=== PATIENT | male | born 1955 | race Caucasian/White ===

== ENCOUNTER 2020-01-11 18:20 | Emergency (ER) | payer MEDICARE, MEDICAID, SELFPAY ==
[2020-01-11 19:14] VITALS: BP 88/47; PULSE 87; RESP 14; TEMP 36.1; O2SAT 92
[2020-01-11] MEDS: SODIUM CHLORIDE 0.9% IV 1,000 ML 999 ML IV CONT ×2 (19:17→21:09)
[2020-01-11 19:21] LABS: Basophils Absolute Auto 0.05 K/mm3 (0.00-0.10); Basophils Percent Auto 0.9 % (0.0-1.0); Eosinophils Absolute Auto 0.24 K/mm3 (0.02-0.50); Eosinophils Percent Auto 4.3 % (1.0-6.0); Hemoglobin 11.3 g/dL (12.4-15.3); Immature Granulocyte Absolute 0.01 K/mm3 (0.00-0.00); Immature Granulocyte Percent A 0.2 % (0.0-0.0); Lymphocytes Absolute Auto 1.82 K/mm3 (1.10-4.50); Lymphocytes Percent Auto 32.3 % (18.0-42.0); Mean Corpuscular HGB Conc 34.2 g/dL (32.0-36.0); Mean Corpuscular Hemoglobin 31.3 pg (27.0-31.0); Mean Corpuscular Volume 91.4 fL (78.0-102.0); Mean Platelet Volume 10.1 fl (8.7-11.0); Monocytes Absolute Auto 0.34 K/mm3 (0.10-0.90); Neutrophils Absolute Auto 3.2 K/mm3 (1.7-7.2); Neutrophils Percent Auto 56.3 % (50.0-70.0); Platelet Count Result 208 K/mm3 (150-420); Red Blood Count 3.61 M/mm3 (4.70-6.10); Red Cell Distribution Width 12.5 % (11.6-14.4); White Blood Count 5.6 K/mm3 (4.8-10.8)
--- NOTE | 2020-01-11 19:30 | PC.NURSE ---
VERBAL ORDERS ENTERED UNDER PCP DR. TUCKER. ERP AWARE. ATTEMPTED TO EDIT ORDER UNDER DR. MCKINNEY, UNSUCCESSFUL.
[2020-01-11 19:50] LABS: Alanine Aminotransferase 22 U/L (16-63); Albumin Level 3.9 g/dL (3.4-5.0); Alkaline Phosphatase 101 U/L (46-116); Anion Gap 16.1 mmol/L (7-16); Aspartate Amino Transferase 20 U/L (15-37); Bilirubin,Total 0.3 mg/dL (0.00-1.00); Blood Urea Nitrogen 14 mg/dL (7-18); Calcium 8.5 mg/dL (8.5-10.1); Carbon Dioxide 23 mmol/L (21-32); Chloride 102 mmol/L (98-108); Estimated Glomerular Filt Rate > 60; Ethanol 77 mg/dL (0-6); Glucose 90 mg/dL (70-99); Osmolality Calculated 284 mOsm/kg (285-295); Potassium 4.1 mmol/L (3.5-5.1); Salicylate 1.1 mg/dL (2.8-20.0); Sodium 137 mmol/L (136-145); Total Protein 7.2 g/dL (6.4-8.2)
[2020-01-11 19:53] LABS: Acetaminophen 0 ug/mL (10-30); Troponin I < 0.02 ng/mL (0.00-0.056)
--- NOTE | 2020-01-11 21:59 | ED.AMS ---
HPI - Altered Mental Status General Chief Complaint: Altered Mental Status Stated Complaint: amb History of Present Illness HPI narrative: Rj Is a 64-year-old man with a past medical history of depression, etoh use, hypertension, insomnia and prolonged QTC was found lying down the front of the pharmacy today. He reports he was drinking some beer this morning and then when walking. He became woozy and went to lie down. He never lost consciousness or fell. He felt woozy and weak so the ambulance was called. Upon arrival he was found to be in the 80s over 50s for blood pressure. He was brought to the emergency department. he denies chest pain, shortness of breath, nausea, vomiting, but does admit being lightheaded. He denies ever losing consciousness. Review of Systems Constitutional: Constitutional: Reports as per HPI Eyes: Eyes: Reports no additional eye complaints ENT: Reports system reviewed and no additional complaints, except as documented Cardiovascular: Cardiovascular: Reports as per HPI Respiratory: Respiratory: Reports as per HPI Gastrointestinal: Gastrointestinal: Reports as per HPI Genitourinary: Genitourinary: Reports no additional male genitourinary complaints Musculoskeletal: Musculoskeletal: Reports no additional musculoskeletal complaints Integumentary/Breasts: Skin/Breast: Reports system reviewed and no additional complaints, except as docu Neurologic: Reports as per HPI Psychiatric: Psychiatric: Reports no additional psychiatric complaints Endocrine: Endocrine: Reports no additional endocrine complaints Hematologic/Lymphatic: Hematologic/Lymphatic: Reports no additional hematologic/lymphatic complaints Allergic/Immunologic: Allergic/Immunologic: Reports no additional allergic/immunologic complaints Exam Const: General: cooperative, comfortable, no acute distress and well developed HENMT: Other: normocephalic, atraumatic Eyes: General: appearance normal, both eyes and all related structures Neck: Neck: normal visual inspection Chest: Chest palpation & inspection: normal inspection of the chest Resp: Effort & Inspection: normal respiratory effort and able to speak in complete sentences Auscultation: clear to auscultation bilaterally, abnormal I/E ratio and no wheezes Cardio: Jugular venous distension: JVD present Other: Regular rate and rhythm without murmur, no lower extremity edema, peripheral pulses intact GI: Other: normal to inspection, bowel sounds present, no tenderness palpation Skin: General skin exam: normal color and no rashes or lesions noted Extrem: Other: Alert oriented x3, no focal deficits, normal speech and normal cognition. No apparent amnesia of into Psych: Appearance: grossly normal and well kempt Course Course Emergency Course: Rj was seen and evaluated. As he had lightheadedness with markedly low blood pressures in the 80s over 50 IV was placed and he was given 1 L of fluids. His blood pressure came up to the 1 100s over 60s. Another L was given and came up to 124/73. After this he reported that he felt better and the lightheadedness was improved. He denied any other symptoms. He has to go home. Before being discharged he was able to walk laps around the ER without difficulty and was alert oriented x3. We discussed stopping alcohol, Ambien, lisinopril and amlodipine and to follow-up with his PCP. he was then discharged. Vital Signs Vital signs: Vital Signs Temperature 36.1 C L 01/11/20 19:14 Pulse Rate 87 01/11/20 19:14 Respiratory Rate 14 01/11/20 19:14 Blood Pressure 88/47 L 01/11/20 19:14 Pulse Oximetry 92 01/11/20 19:14 Temperature 36.1 C L 01/11/20 19:14 Pulse Rate 87 01/11/20 19:14 Respiratory Rate 14 01/11/20 19:14 Blood Pressure 88/47 L 01/11/20 19:14 Pulse Oximetry 92 01/11/20 19:14 MDM - Altered Mental Status MDM Narrative Medical decision making narrative: lightheadedness secondary to dehydration
[2020-01-11 22:07] VITALS: BP 124/73
== END 2020-01-11 22:08 | disposition home or self-care (01) ==
PROVIDERS: Emergency Provider Family Medicine; PCP Internal Medicine
DX: E86.0 Dehydration (principal); I10 Essential (primary) hypertension; Z72.89 Other problems related to lifestyle
CPT/HCPCS: 36415; 80053; 80307; 84484; 85025; 96360; 96361; 99283; 99284; J7030

== ENCOUNTER 2020-03-05 06:59 | Outpatient (CLI) | payer MEDICARE, MEDICAID, SELFPAY ==
[2020-03-05 07:19] LABS: Basophils Absolute Auto 0.05 K/mm3 (0.00-0.10); Basophils Percent Auto 0.6 % (0.0-1.0); Eosinophils Absolute Auto 0.21 K/mm3 (0.02-0.50); Eosinophils Percent Auto 2.5 % (1.0-6.0); Hematocrit 39.6 % (37.0-46.0); Hemoglobin 13.3 g/dL (12.4-15.3); Immature Granulocyte Absolute 0.02 K/mm3 (0.00-0.00); Immature Granulocyte Percent A 0.2 % (0.0-0.0); Lymphocytes Absolute Auto 1.63 K/mm3 (1.10-4.50); Lymphocytes Percent Auto 19.5 % (18.0-42.0); Mean Corpuscular HGB Conc 33.6 g/dL (32.0-36.0); Mean Corpuscular Hemoglobin 31.1 pg (27.0-31.0); Mean Corpuscular Volume 92.5 fL (78.0-102.0); Mean Platelet Volume 10.4 fl (8.7-11.0); Monocytes Absolute Auto 0.59 K/mm3 (0.10-0.90); Monocytes Percent Auto 7.1 % (2.0-11.0); Neutrophils Absolute Auto 5.9 K/mm3 (1.7-7.2); Neutrophils Percent Auto 70.1 % (50.0-70.0); Platelet Count Result 198 K/mm3 (150-420); Red Blood Count 4.28 M/mm3 (4.70-6.10); Red Cell Distribution Width 12.4 % (11.6-14.4); White Blood Count 8.4 K/mm3 (4.8-10.8)
--- NOTE | 2020-03-05 07:30 | ECG_ITS ---
Measurements Intervals [place] Rate: 85 P: 60 [place]: 160 QRS: 69 QRSD: 114 T: 53 QT: 380 QTc: 454 Interpretive Statements SINUS RHYTHM INCOMPLETE RIGHT BUNDLE BRANCH BLOCK BORDERLINE ECG Electronically Signed On 03-05-2020 7:51:59 CDT by Jamie Jimenes D.O.
[2020-03-05 08:48] LABS: Hemoglobin A1C 5.4 % (<5.7)
[2020-03-05 09:21] LABS: Alanine Aminotransferase 23 U/L (16-63); Alkaline Phosphatase 115 U/L (46-116); Anion Gap 14.5 mmol/L (7-16); Aspartate Amino Transferase 19 U/L (15-37); Bilirubin,Total 0.6 mg/dL (0.00-1.00); Blood Urea Nitrogen 11 mg/dL (7-18); Calcium 9.1 mg/dL (8.5-10.1); Carbon Dioxide 28 mmol/L (21-32); Chloride 102 mmol/L (98-108); Cholesterol 184 mg/dL (0-200); Estimated Glomerular Filt Rate > 60; Glucose 112 mg/dL (70-99); HDL Direct 60 mg/dL (40-60); LDL Cholesterol Calculated 86 mg/dL (<130); Osmolality Calculated 290 mOsm/kg (285-295); Potassium 4.5 mmol/L (3.5-5.1); Sodium 140 mmol/L (136-145); Total Protein 6.7 g/dL (6.4-8.2); Triglycerides 190 mg/dL (0-150)
== END 2020-03-05 07:00 | disposition home or self-care (01) ==
PROVIDERS: PCP Internal Medicine
DX: Z79.899 Other long term (current) drug therapy (principal)
CPT/HCPCS: 36415; 80053; 80061; 83036; 85025; 93005

== ENCOUNTER 2020-08-04 09:20 | Outpatient (CLI) | payer MEDICARE, SELFPAY ==
[2020-08-04 09:48] LABS: Appearance Urine Clear (Clear); Bilirubin Urine Negative (Negative); Color Urine Yellow (Yellow); Glucose Urine UA Negative (Negative); Ketones Urine Negative (Negative); Leukocyte Esterase Ur Negative (Negative); Nitrate Urine Negative (Negative); Protein Urine Negative (Negative); Specific Grav Ur <= 1.005 (1.010-1.020); Urobilinogen Urine 0.2 mg/dL (0.2-1.0)
[2020-08-04 10:00] LABS: Hemoglobin A1C 4.9 % (<5.7)
[2020-08-04 10:18] LABS: Add Urine Microscopic? YES; Blood Urine Trace-Intact (Negative)
[2020-08-04 10:19] LABS: Bacteria Urine None seen /hpf; RBC Urine 0-2 /hpf (0-2); Squamous Epithelial Cell Urine None seen /hpf (Few); WBC Urine 0-3 /hpf (0-3)
[2020-08-04 10:49] LABS: Alanine Aminotransferase 31 U/L (16-63); Anion Gap 12 mmol/L (8-16); Aspartate Amino Transferase 27 U/L (15-37); Bilirubin,Total 0.5 mg/dL (0.00-1.00); Blood Urea Nitrogen 11 mg/dL (7-18); Calcium 8.8 mg/dL (8.5-10.1); Carbon Dioxide 24 mmol/L (21-32); Chloride 104 mmol/L (98-108); Estimated Glomerular Filt Rate > 60; Glucose 104 mg/dL (70-99); Osmolality Calculated 289 mOsm/kg (285-295); Potassium 4.1 mmol/L (3.5-5.1); Sodium 140 mmol/L (136-145)
[2020-08-04 10:50] LABS: Albumin Level 4.2 g/dL (3.4-5.0); Alkaline Phosphatase 110 U/L (46-116); Cholesterol 205 mg/dL (0-200); HDL Direct 69 mg/dL (40-60); LDL Cholesterol Calculated 75 mg/dL (<130); Prostate Specific Antigen 1.1 ng/mL (< OR = 4.0); Triglycerides 306 mg/dL (0-150)
== END 2020-08-04 09:21 | disposition home or self-care (01) ==
LOC: CHSLAB 09:22
PROVIDERS: PCP Internal Medicine; Visit Provider Internal Medicine
DX: E78.5 Hyperlipidemia, unspecified (principal); R73.9 Hyperglycemia, unspecified; Z12.5 Encounter for screening for malignant neoplasm of prostate; Z00.00 Encounter for general adult medical examination without abnormal findings
CPT/HCPCS: 36415; 80053; 80061; 81001; 83036; 84153; G0103

== ENCOUNTER 2021-03-09 09:25 | Outpatient (CLI) | payer MEDICARE, OTHER, SELFPAY | END 2021-03-09 09:26 | disposition home or self-care (01) | LOC: CHSCOVIDVC 09:26 | PROVIDERS: PCP Internal Medicine | DX: Z23 Encounter for immunization (principal) | CPT/HCPCS: 0011A; 91301 ==

== ENCOUNTER 2021-03-20 10:30 | Outpatient (CLI) | payer MEDICARE, SELFPAY ==
[2021-03-20 11:22] LABS: Alanine Aminotransferase 82 U/L (16-63); Albumin Level 3.6 g/dL (3.4-5.0); Alkaline Phosphatase 154 U/L (46-116); Anion Gap 9 mmol/L (8-16); Aspartate Amino Transferase 92 U/L (15-37); Bilirubin,Total 0.4 mg/dL (0.00-1.00); Blood Urea Nitrogen 8 mg/dL (7-18); Calcium 8.5 mg/dL (8.5-10.1); Carbon Dioxide 27 mmol/L (21-32); Chloride 101 mmol/L (98-108); Cholesterol 162 mg/dL (0-200); Estimated Glomerular Filt Rate > 60; Glucose 95 mg/dL (70-99); HDL Direct 62 mg/dL (40-60); LDL Cholesterol Calculated 43 mg/dL (<130); Osmolality Calculated 282 mOsm/kg (285-295); Potassium 4.2 mmol/L (3.5-5.1); Sodium 137 mmol/L (136-145); Total Protein 6.6 g/dL (6.4-8.2); Triglycerides 285 mg/dL (0-150)
[2021-03-25 11:46] LABS: Hepatitis A Antibody IgM Nonreactive; Hepatitis B Core Antibody Nonreactive (Nonreactive); Hepatitis B Surface Antigen Nonreactive (Nonreactive); Hepatitis C Signal to Cutoff 0.01 ratio (<1.00); Hepatitis C Virus Antibody Nonreactive (Nonreactive)
== END 2021-03-20 10:31 | disposition home or self-care (01) ==
PROVIDERS: PCP Internal Medicine; Visit Provider Internal Medicine
DX: E78.5 Hyperlipidemia, unspecified (principal); R94.5 Abnormal results of liver function studies
CPT/HCPCS: 36415; 80053; 80061; 80074

== ENCOUNTER 2021-03-22 09:11 | Outpatient (CLI) | payer MEDICARE, MEDICAID, SELFPAY ==
--- NOTE | ~2021-03-22 | US_ITS ---
US right upper quadrant DATE: 03/22/2021 09:56 INDICATION: Elevated liver enzymes TECHNIQUE: Real-time imaging of liver, pancreas, gallbladder COMPARISON: None FINDINGS: The pancreatic tail is not demonstrated. The pancreas is otherwise unremarkable. No hepatic space-occupying mass lesion. No gallstones, gallbladder wall thickening or pericholecystic fluid col lection. Negative sonographic Hinojosa's sign. Common bile duct measures 3.8 mm, normal. IMPRESSION: No significant abnormality Reviewed, dictated and finalized at [facility]. Reviewed, dictated and finalized at [facility]. IMPRESSION: No significant abnormality
== END 2021-03-22 09:12 | disposition home or self-care (01) ==
LOC: CHSIMG 09:11
PROVIDERS: PCP Internal Medicine; Visit Provider Internal Medicine
DX: R94.5 Abnormal results of liver function studies (principal)
CPT/HCPCS: 76705

== ENCOUNTER 2021-04-06 09:18 | Outpatient (CLI) | payer MEDICARE, OTHER, SELFPAY | END 2021-04-06 09:19 | disposition home or self-care (01) | LOC: CHSCOVIDVC 09:18 | PROVIDERS: PCP Internal Medicine | DX: Z23 Encounter for immunization (principal) | CPT/HCPCS: 0012A; 91301 ==

== ENCOUNTER 2021-06-18 19:24 | Emergency (ER) | payer MEDICARE, MEDICAID, SELFPAY ==
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
[2021-06-18 19:36] VITALS: BP 120/69; PULSE 75; RESP 20; TEMP 37; O2SAT 97
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
[2021-06-18 21:44] LABS: Base Excess ABG -3.3 mmol/L (0-2); HCO3 ABG 20.4 mmol/L (23-29); Oxygen Content ABG 17.2 %vol (16.0-22.0); Oxyhemoglobin 92.3 % (94-100); Total Hemoglobin 13.2 g/dL (12.0-18.0); pH ABG 7.41 (7.35-7.45)
[2021-06-18 21:47] LABS: Device ROOM AIR; Modified Allen's Test Pass; Site Drawn RIGHT RADIAL
[2021-06-18 21:48] LABS: Basophils Absolute Auto 0.06 K/mm3 (0.00-0.10); Basophils Percent Auto 0.8 % (0.0-1.0); Eosinophils Absolute Auto 0.09 K/mm3 (0.02-0.50); Eosinophils Percent Auto 1.2 % (1.0-6.0); Hematocrit 39.2 % (37.0-46.0); Immature Granulocyte Absolute 0.02 K/mm3 (0.00-0.00); Immature Granulocyte Percent A 0.3 % (0.0-0.0); Lymphocytes Absolute Auto 1.03 K/mm3 (1.10-4.50); Lymphocytes Percent Auto 14.1 % (18.0-42.0); Mean Corpuscular HGB Conc 33.2 g/dL (32.0-36.0); Mean Corpuscular Hemoglobin 32.3 pg (27.0-31.0); Mean Corpuscular Volume 97.5 fL (78.0-102.0); Mean Platelet Volume 10.1 fl (8.7-11.0); Monocytes Absolute Auto 0.44 K/mm3 (0.10-0.90); Neutrophils Absolute Auto 5.7 K/mm3 (1.7-7.2); Neutrophils Percent Auto 77.6 % (50.0-70.0); Platelet Count Result 168 K/mm3 (150-420); Red Blood Count 4.02 M/mm3 (4.70-6.10); Red Cell Distribution Width 12.6 % (11.6-14.4); White Blood Count 7.3 K/mm3 (4.8-10.8)
[2021-06-18] MEDS: ALBUTEROL SULFATE (*SP) INHALER 2 PUFF INHALATION (22:02)
[2021-06-18 22:03] LABS: Alanine Aminotransferase 92 U/L (16-63); Albumin Level 3.6 g/dL (3.4-5.0); Alkaline Phosphatase 131 U/L (46-116); Anion Gap 12 mmol/L (8-16); Aspartate Amino Transferase 90 U/L (15-37); Bilirubin,Total 0.3 mg/dL (0.00-1.00); Blood Urea Nitrogen 7 mg/dL (7-18); Calcium 8.6 mg/dL (8.5-10.1); Carbon Dioxide 23 mmol/L (21-32); Chloride 104 mmol/L (98-108); Estimated CRCL calculation 77 ml/min; Estimated Glomerular Filt Rate > 60; Glucose 83 mg/dL (70-99); Osmolality Calculated 285 mOsm/kg (285-295); Potassium 4.3 mmol/L (3.5-5.1); Sodium 139 mmol/L (136-145); Total Protein 6.6 g/dL (6.4-8.2)
[2021-06-18 22:50] VITALS: BP 140/74; PULSE 80; RESP 20; TEMP 36.2; O2SAT 99
== END 2021-06-18 22:56 | disposition home or self-care (01) ==
PROVIDERS: Emergency Provider Emergency Medicine; PCP Internal Medicine
DX: T59.811A Toxic effect of smoke, accidental (unintentional), initial encounter (principal); J44.9 Chronic obstructive pulmonary disease, unspecified; F17.200 Nicotine dependence, unspecified, uncomplicated
CPT/HCPCS: 36415; 36600; 71046; 80053; 82805; 85025; 99283; A9270

== ENCOUNTER 2021-07-05 07:15 | Outpatient (CLI) | payer MEDICARE, SELFPAY ==
[2021-07-05 07:39] LABS: Basophils Absolute Auto 0.08 K/mm3 (0.00-0.10); Basophils Percent Auto 1.1 % (0.0-1.0); Eosinophils Absolute Auto 0.23 K/mm3 (0.02-0.50); Eosinophils Percent Auto 3.3 % (1.0-6.0); Hematocrit 38.8 % (37.0-46.0); Immature Granulocyte Absolute 0.02 K/mm3 (0.00-0.00); Immature Granulocyte Percent A 0.3 % (0.0-0.0); Lymphocytes Absolute Auto 1.84 K/mm3 (1.10-4.50); Lymphocytes Percent Auto 26.2 % (18.0-42.0); Mean Corpuscular HGB Conc 33.5 g/dL (32.0-36.0); Mean Corpuscular Hemoglobin 32.2 pg (27.0-31.0); Mean Platelet Volume 10.3 fl (8.7-11.0); Monocytes Absolute Auto 0.45 K/mm3 (0.10-0.90); Monocytes Percent Auto 6.4 % (2.0-11.0); Neutrophils Absolute Auto 4.4 K/mm3 (1.7-7.2); Neutrophils Percent Auto 62.7 % (50.0-70.0); Platelet Count Result 199 K/mm3 (150-420); Red Blood Count 4.04 M/mm3 (4.70-6.10); Red Cell Distribution Width 12.1 % (11.6-14.4)
[2021-07-05 07:43] LABS: Add Urine Microscopic? NO; Appearance Urine Clear (Clear); Bilirubin Urine Negative (Negative); Blood Urine Negative (Negative); Color Urine Yellow (Yellow); Glucose Urine UA Negative (Negative); Ketones Urine Negative (Negative); Leukocyte Esterase Ur Negative (Negative); Nitrate Urine Negative (Negative); Protein Urine Negative (Negative); Specific Grav Ur >= 1.030 (1.010-1.020); Urobilinogen Urine 0.2 mg/dL (0.2-1.0)
[2021-07-05 08:26] LABS: Alanine Aminotransferase 111 U/L (16-63); Albumin Level 3.7 g/dL (3.4-5.0); Alkaline Phosphatase 126 U/L (46-116); Anion Gap 10 mmol/L (8-16); Aspartate Amino Transferase 91 U/L (15-37); Bilirubin,Total 0.6 mg/dL (0.00-1.00); Blood Urea Nitrogen 10 mg/dL (7-18); Calcium 8.7 mg/dL (8.5-10.1); Carbon Dioxide 25 mmol/L (21-32); Chloride 106 mmol/L (98-108); Cholesterol 204 mg/dL (0-200); Estimated Glomerular Filt Rate > 60; Free T3 2.87 pg/mL (2.18-3.98); Free T4 Free Thyroxine 0.77 ng/dL (0.76-1.46); Glucose 104 mg/dL (70-99); HDL Direct 65 mg/dL (40-60); LDL Cholesterol Calculated 107 mg/dL (<130); Osmolality Calculated 291 mOsm/kg (285-295); Potassium 4.1 mmol/L (3.5-5.1); Sodium 141 mmol/L (136-145); Total Protein 6.6 g/dL (6.4-8.2); Triglycerides 162 mg/dL (0-150)
[2021-07-05 08:46] LABS: Thyroid Stimulating Hormone 0.93 uIU/mL (0.36-3.74)
== END 2021-07-05 07:16 | disposition home or self-care (01) ==
LOC: CHSLAB 07:17
PROVIDERS: PCP Internal Medicine; Visit Provider Internal Medicine
DX: E78.5 Hyperlipidemia, unspecified (principal); R94.5 Abnormal results of liver function studies; R63.4 Abnormal weight loss
CPT/HCPCS: 36415; 80053; 80061; 81003; 84439; 84443; 84481; 85025

== ENCOUNTER 2021-08-19 08:10 | Outpatient (CLI) | payer MEDICARE, SELFPAY ==
[2021-08-19 09:44] LABS: Alanine Aminotransferase 47 U/L (16-63); Albumin Level 3.7 g/dL (3.4-5.0); Alkaline Phosphatase 118 U/L (46-116); Anion Gap 10 mmol/L (8-16); Aspartate Amino Transferase 43 U/L (15-37); Bilirubin,Total 0.5 mg/dL (0.00-1.00); Blood Urea Nitrogen 9 mg/dL (7-18); Calcium 8.7 mg/dL (8.5-10.1); Carbon Dioxide 26 mmol/L (21-32); Chloride 105 mmol/L (98-108); Cholesterol 194 mg/dL (0-200); Estimated Glomerular Filt Rate > 60; Glucose 108 mg/dL (70-99); HDL Direct 62 mg/dL (40-60); LDL Cholesterol Calculated 100 mg/dL (<130); Osmolality Calculated 291 mOsm/kg (285-295); Sodium 141 mmol/L (136-145); Total Protein 6.4 g/dL (6.4-8.2); Triglycerides 161 mg/dL (0-150)
== END 2021-08-19 08:11 | disposition home or self-care (01) ==
LOC: CHSLAB 08:13
PROVIDERS: PCP Internal Medicine; Visit Provider Internal Medicine
DX: E78.5 Hyperlipidemia, unspecified (principal); R94.5 Abnormal results of liver function studies
CPT/HCPCS: 36415; 80053; 80061

== ENCOUNTER 2021-09-28 15:12 | Emergency (ER) | payer MEDICARE, MEDICAID, SELFPAY ==
[2021-09-28 15:22] VITALS: BP 141/76; PULSE 109; RESP 16; TEMP 36.7
--- NOTE | 2021-09-28 15:25 | ED.GENADULT ---
HPI - General Adult General Chief complaint: Unspecified Stated complaint: hypertension, blood pressure rosas Time Seen by Provider: 09/28/21 15:26 Source: patient Mode of arrival: ambulatory Limitations: no limitations History of Present Illness HPI narrative: 65-year-old male smoker with history of hypertension, dyslipidemia, COPD, depression took his blood pressure at the local pharmacy and noted it to be high. His blood pressure at the pharmacy was noted to be 190 systolic. He got concerned and presented to the ER. The patient does not have any complaints. Blood pressure here was noted to be 141/76. Onset (ago): minute(s) ( high blood pressure was noted half an hour ago.) Associated symptoms: denies other symptoms Treatments prior to arrival: none Related Data Home Medications Medication Instructions Recorded Confirmed amlodipine 5 mg PO DAILY 06/18/21 06/18/21 pravastatin 80 mg PO DAILY 06/18/21 06/18/21 quetiapine 100 mg PO DAILY 06/18/21 06/18/21 zolpidem 10 mg PO DAILY 06/18/21 06/18/21 Allergies Allergy/AdvReac Type Severity Reaction Status Date / Time No Known Allergies Allergy Verified 06/18/21 19:35 Review of Systems Review of Systems: All systems reviewed & are unremarkable except as noted in HPI and below Constitutional: Constitutional: Reports no additional constitutional complaints Eyes: Eyes: Reports as per HPI ENT: Reports system reviewed and no additional complaints, except as documented Cardiovascular: Cardiovascular: Reports no additional cardiovascular complaints Respiratory: Respiratory: Reports other ( Has a history of chronic cough with mucoid sputum production.) Gastrointestinal: Gastrointestinal: Reports no additional gastrointestinal complaints Genitourinary: Genitourinary: Reports no additional male genitourinary complaints Musculoskeletal: Musculoskeletal: Reports no additional musculoskeletal complaints Integumentary/Breasts: Skin/Breast: Reports system reviewed and no additional complaints, except as docu Neurologic: Reports system reviewed and no additional complaints, except as documented Psychiatric: Psychiatric: Reports no additional psychiatric complaints Endocrine: Endocrine: Reports no additional endocrine complaints Hematologic/Lymphatic: Hematologic/Lymphatic: Reports no additional hematologic/lymphatic complaints Allergic/Immunologic: Allergic/Immunologic: Reports no additional allergic/immunologic complaints PMFSH Past Medical History Medical History COPD (chronic obstructive pulmonary disease) Depressed Dyslipidemia Hypertension Social History Social History Smoking status: Current every day smoker Exam Const: General: cooperative HENMT: Head: normal to inspection Ears: hearing grossly normal bilaterally General nose exam: Normal external nose present Face and sinus: normal facial exam Mouth: Yes Normal oral and palatal mucosa present Throat: posterior oropharynx normal Eyes: General: appearance normal, both eyes and all related structures Neck: Neck: normal visual inspection Chest: Chest palpation & inspection: normal inspection of the chest Resp: Effort & Inspection: normal respiratory effort Cardio: Jugular venous distension: no JVD Palpation: normal PMI Rate: regular rate Rhythm: regular rhythm Heart sounds: S1 normal heart sound present and S2 normal heart sound present GI: Inspection: normal to inspection : General: Yes bimanual renal exam normal bilaterally and Yes no CVA tenderness Back/Spine/Pelvis: Back: no CVA tenderness Skin: General skin exam: no rashes or lesions noted Neuro: General: oriented to person, oriented to place, oriented to time, patient oriented x3, Normal light touch and pain sensation, no meningeal signs, no focal motor deficits and CN's II-XI intact bilaterally Cranial nerv
--- NOTE | 2021-09-28 15:42 | PC.NURSE ---
Pt refused blood work.
== END 2021-09-28 15:47 | disposition home or self-care (01) ==
PROVIDERS: Emergency Provider Internal Medicine Critical Care Medicine; PCP Internal Medicine
DX: I10 Essential (primary) hypertension (principal); J44.9 Chronic obstructive pulmonary disease, unspecified; E78.5 Hyperlipidemia, unspecified; F17.200 Nicotine dependence, unspecified, uncomplicated
CPT/HCPCS: 99281; 99282

== ENCOUNTER 2021-12-30 07:36 | Outpatient (CLI) | payer MEDICARE, SELFPAY ==
[2021-12-30 09:23] LABS: Alanine Aminotransferase 40 U/L (16-63); Albumin Level 3.6 g/dL (3.4-5.0); Alkaline Phosphatase 104 U/L (46-116); Anion Gap 11 mmol/L (8-16); Aspartate Amino Transferase 36 U/L (15-37); Bilirubin,Total 0.4 mg/dL (0.00-1.00); Blood Urea Nitrogen 8 mg/dL (7-18); Calcium 8.1 mg/dL (8.5-10.1); Carbon Dioxide 24 mmol/L (21-32); Chloride 102 mmol/L (98-108); Cholesterol 202 mg/dL (0-200); Estimated Glomerular Filt Rate > 60; Glucose 113 mg/dL (70-99); HDL Direct 37 mg/dL (40-60); Osmolality Calculated 283 mOsm/kg (285-295); Potassium 4.5 mmol/L (3.5-5.1); Sodium 137 mmol/L (136-145); Total Protein 6.4 g/dL (6.4-8.2)
[2021-12-30 09:37] LABS: LDL Cholesterol Calculated 20 mg/dL (<130); Triglycerides 726 mg/dL (0-150)
[2021-12-30 11:47] LABS: LDL Cholesterol Direct > 300 mg/dL (0-130)
[2021-12-31 11:26] LABS: Hemoglobin A1C 4.9 % (<5.7)
== END 2021-12-30 07:37 | disposition home or self-care (01) ==
LOC: CHSLAB 07:38
PROVIDERS: PCP Internal Medicine; Visit Provider Internal Medicine
DX: R73.03 Prediabetes (principal); E78.5 Hyperlipidemia, unspecified; Z12.5 Encounter for screening for malignant neoplasm of prostate; Z00.00 Encounter for general adult medical examination without abnormal findings
CPT/HCPCS: 36415; 80053; 80061; 83036; 83721; 84153; G0103

== ENCOUNTER 2022-02-14 06:48 | Outpatient (CLI) | payer MEDICARE, SELFPAY ==
[2022-02-14 08:10] LABS: Cholesterol 147 mg/dL (0-200); HDL Direct 47 mg/dL (40-60); LDL Cholesterol Calculated 46 mg/dL (<130); Triglycerides 271 mg/dL (0-150)
[2022-02-18 13:50] LABS: Vitamin D 25 Hydroxy 13 ng/mL (30-100)
== END 2022-02-14 06:49 | disposition home or self-care (01) ==
LOC: CHSLAB 06:51
PROVIDERS: PCP Internal Medicine; Visit Provider Nurse Practitioner Family
DX: E78.5 Hyperlipidemia, unspecified (principal); I10 Essential (primary) hypertension; E83.51 Hypocalcemia
CPT/HCPCS: 36415; 80061; 82306

== ENCOUNTER 2022-05-06 13:18 | Outpatient (CLI) | payer MEDICARE, SELFPAY ==
[2022-05-06 14:04] LABS: Influenza A QL RT-PCR Negative (Negative); Influenza B QL RT-PCR Negative (Negative); SARS-CoV-2 RNA PCR Negative (Negative)
== END 2022-05-06 13:19 | disposition home or self-care (01) ==
LOC: CHSLAB 13:20
PROVIDERS: PCP Internal Medicine; Visit Provider Internal Medicine
DX: R05.9 Cough, unspecified (principal); J02.9 Acute pharyngitis, unspecified; Z20.822 Contact with and (suspected) exposure to COVID-19
CPT/HCPCS: 87502; C9803; U0003; U0005

== ENCOUNTER 2022-05-28 07:14 | Outpatient (CLI) | payer MEDICARE, SELFPAY ==
[2022-05-28 07:31] LABS: Basophils Absolute Auto 0.05 K/mm3 (0.00-0.10); Basophils Percent Auto 0.7 % (0.0-1.0); Eosinophils Absolute Auto 0.24 K/mm3 (0.02-0.50); Eosinophils Percent Auto 3.5 % (1.0-6.0); Hematocrit 37.5 % (37.0-46.0); Hemoglobin 12.7 g/dL (12.4-15.3); Immature Granulocyte Absolute 0.05 K/mm3 (0.00-0.00); Immature Granulocyte Percent A 0.7 % (0.0-0.0); Lymphocytes Absolute Auto 1.46 K/mm3 (1.10-4.50); Lymphocytes Percent Auto 21.3 % (18.0-42.0); Mean Corpuscular HGB Conc 33.9 g/dL (32.0-36.0); Mean Corpuscular Hemoglobin 32.3 pg (27.0-31.0); Mean Corpuscular Volume 95.4 fL (78.0-102.0); Mean Platelet Volume 10.5 fl (8.7-11.0); Monocytes Absolute Auto 0.47 K/mm3 (0.10-0.90); Monocytes Percent Auto 6.9 % (2.0-11.0); Neutrophils Absolute Auto 4.6 K/mm3 (1.7-7.2); Neutrophils Percent Auto 66.9 % (50.0-70.0); Platelet Count Result 157 K/mm3 (150-420); Red Blood Count 3.93 M/mm3 (4.70-6.10); White Blood Count 6.8 K/mm3 (4.8-10.8)
[2022-05-28 07:48] LABS: Hemoglobin A1C 5.3 % (<5.7)
[2022-05-28 08:05] LABS: Alanine Aminotransferase 37 U/L (16-63); Albumin Level 3.4 g/dL (3.4-5.0); Alkaline Phosphatase 116 U/L (46-116); Anion Gap 9 mmol/L (8-16); Aspartate Amino Transferase 36 U/L (15-37); Bilirubin,Total 0.4 mg/dL (0.00-1.00); Blood Urea Nitrogen 9 mg/dL (7-18); Calcium 8.7 mg/dL (8.5-10.1); Carbon Dioxide 24 mmol/L (21-32); Chloride 106 mmol/L (98-108); Cholesterol 171 mg/dL (0-200); Estimated Glomerular Filt Rate > 60; Glucose 112 mg/dL (70-99); HDL Direct 49 mg/dL (40-60); LDL Cholesterol Calculated 71 mg/dL (<130); Osmolality Calculated 287 mOsm/kg (285-295); Potassium 4.3 mmol/L (3.5-5.1); Sodium 139 mmol/L (136-145); Triglycerides 255 mg/dL (0-150)
== END 2022-05-28 07:15 | disposition home or self-care (01) ==
LOC: CHSLAB 07:17
PROVIDERS: PCP Internal Medicine; Visit Provider Internal Medicine
DX: I10 Essential (primary) hypertension (principal); E78.5 Hyperlipidemia, unspecified; R73.01 Impaired fasting glucose
CPT/HCPCS: 36415; 80053; 80061; 83036; 85025

== ENCOUNTER 2022-10-06 16:33 | Emergency (ER) | payer MEDICARE, MEDICAID, SELFPAY ==
[2022-10-06 16:35] VITALS: BP 169/89; PULSE 70; RESP 16; TEMP 36.3
[2022-10-06 17:45] VITALS: BP 144/85; PULSE 81; RESP 16; O2SAT 98
--- NOTE | 2022-10-06 17:59 | ED.GENADULT ---
HPI - General Adult General Chief complaint: Unspecified Stated complaint: high blood pressure Time Seen by Provider: 10/06/22 16:37 Source: patient and RN notes reviewed Mode of arrival: ambulatory Limitations: no limitations History of Present Illness MD complaint: bp was elevated at home. Onset (ago): week(s) (1) Radiation: non-radiation Severity: mild Pain Consistency: other (pain-free) Relieving factors: medication Exacerbating factors: none Associated symptoms: denies other symptoms Related Data Home Medications Medication Instructions Recorded Confirmed amlodipine 5 mg tablet 5 mg PO DAILY 06/18/21 10/06/22 pravastatin 80 mg tablet 80 mg PO DAILY 06/18/21 10/06/22 quetiapine 100 mg tablet 100 mg PO DAILY 06/18/21 10/06/22 zolpidem 10 mg tablet 10 mg PO DAILY 06/18/21 10/06/22 Allergies Allergy/AdvReac Type Severity Reaction Status Date / Time No Known Allergies Allergy Verified 10/06/22 17:01 Review of Systems Review of Systems: All systems reviewed & are unremarkable except as noted in HPI and below Constitutional: Constitutional: Reports no additional constitutional complaints Eyes: Eyes: Reports no additional eye complaints ENT: Reports system reviewed and no additional complaints, except as documented Cardiovascular: Cardiovascular: Reports no additional cardiovascular complaints Respiratory: Respiratory: Reports no additional respiratory complaints Gastrointestinal: Gastrointestinal: Reports no additional gastrointestinal complaints Musculoskeletal: Musculoskeletal: Reports no additional musculoskeletal complaints Integumentary/Breasts: Skin/Breast: Reports system reviewed and no additional complaints, except as docu Neurologic: Reports system reviewed and no additional complaints, except as documented Psychiatric: Psychiatric: Reports no additional psychiatric complaints Endocrine: Endocrine: Reports no additional endocrine complaints Hematologic/Lymphatic: Hematologic/Lymphatic: Reports no additional hematologic/lymphatic complaints Allergic/Immunologic: Allergic/Immunologic: Reports no additional allergic/immunologic complaints PMFSH Past Medical History Medical History COPD (chronic obstructive pulmonary disease) Depressed Dyslipidemia Hypertension Social History Social History Smoking status: Current every day smoker Exam Const: General: healthy appearing, no acute distress and well nourished Nutritional Appearance: well nourished Orientation/consciousness: patient oriented x3 Limitations: no limitations HENMT: Head: normal to inspection Ears: external ears normal, TM's normal bilaterally and EAC's normal Face/Nose/Sinus: Normal external nose present, Normal nares present, normal facial exam and sinuses nontender Face and sinus: normal facial exam and sinuses nontender Mouth: Yes Normal oral and palatal mucosa present and Yes moist mucous membranes Teeth and gingiva: dentition normal Throat: posterior oropharynx normal Eyes: Conjunctivae: conjunctivae normal Pupils: Equal, round and reactive pupils present EOM: EOMs intact bilaterally Neck: Neck: normal visual inspection, no lymphadenopathy and no meningeal signs Chest: Chest palpation & inspection: normal inspection of the chest Resp: Effort & Inspection: normal respiratory effort Auscultation: clear to auscultation bilaterally Cardio: Rate: regular rate Rhythm: regular rhythm GI: GI Palp: Yes Soft to palpation and No Tenderness to palpation present (GI) Auscultation: normal bowel sounds : General: Yes bladder normal to palpation and Yes no CVA tenderness Back/Spine/Pelvis: Back: no CVA tenderness Skin: General skin exam: normal color Rashes: no rashes Wounds: no wounds Neuro: General: patient oriented x3, moves all extremities, no meningeal signs, no focal motor deficits and CN's II-X
== END 2022-10-06 18:20 | disposition home or self-care (01) ==
PROVIDERS: Emergency Provider Emergency Medicine; PCP Internal Medicine
DX: I10 Essential (primary) hypertension (principal); J44.9 Chronic obstructive pulmonary disease, unspecified; E78.5 Hyperlipidemia, unspecified; F17.200 Nicotine dependence, unspecified, uncomplicated
CPT/HCPCS: 99281

== ENCOUNTER 2023-01-05 06:57 | Outpatient (CLI) | payer MEDICARE, SELFPAY ==
[2023-01-05 07:12] LABS: Basophils Absolute Auto 0.07 K/mm3 (0.00-0.10); Basophils Percent Auto 0.8 % (0.0-1.0); Eosinophils Absolute Auto 0.37 K/mm3 (0.02-0.50); Eosinophils Percent Auto 4.4 % (1.0-6.0); Hematocrit 38.5 % (37.0-46.0); Hemoglobin 12.9 g/dL (12.4-15.3); Immature Granulocyte Absolute 0.02 K/mm3 (0.00-0.00); Immature Granulocyte Percent A 0.2 % (0.0-0.0); Lymphocytes Absolute Auto 2.25 K/mm3 (1.10-4.50); Lymphocytes Percent Auto 26.6 % (18.0-42.0); Mean Corpuscular HGB Conc 33.5 g/dL (32.0-36.0); Mean Corpuscular Hemoglobin 29.8 pg (27.0-31.0); Mean Corpuscular Volume 88.9 fL (78.0-102.0); Mean Platelet Volume 10.3 fl (8.7-11.0); Monocytes Absolute Auto 0.59 K/mm3 (0.10-0.90); Neutrophils Absolute Auto 5.2 K/mm3 (1.7-7.2); Platelet Count Result 197 K/mm3 (150-420); Red Blood Count 4.33 M/mm3 (4.70-6.10); Red Cell Distribution Width 12.5 % (11.6-14.4); White Blood Count 8.5 K/mm3 (4.8-10.8)
[2023-01-05 07:13] LABS: Add Urine Microscopic? NO; Appearance Urine Clear (Clear); Bilirubin Urine Negative (Negative); Blood Urine Negative (Negative); Color Urine Yellow (Yellow); Glucose Urine UA Negative (Negative); Ketones Urine Negative (Negative); Leukocyte Esterase Ur Negative (Negative); Nitrate Urine Negative (Negative); Protein Urine Negative (Negative); Specific Grav Ur >= 1.030 (1.010-1.020); Urobilinogen Urine 0.2 mg/dL (0.2-1.0); pH Urine 5.5 (5.0-8.0)
[2023-01-05 08:42] LABS: Alanine Aminotransferase 24 U/L (16-63); Albumin Level 3.7 g/dL (3.4-5.0); Alkaline Phosphatase 112 U/L (46-116); Anion Gap 11 mmol/L (8-16); Aspartate Amino Transferase 17 U/L (15-37); Bilirubin,Total 0.5 mg/dL (0.00-1.00); Blood Urea Nitrogen 7 mg/dL (7-18); Calcium 8.7 mg/dL (8.5-10.1); Carbon Dioxide 27 mmol/L (21-32); Chloride 106 mmol/L (98-108); Cholesterol 182 mg/dL (0-200); Estimated Glomerular Filt Rate > 60; Glucose 101 mg/dL (70-99); HDL Direct 42 mg/dL (40-60); LDL Cholesterol Calculated 118 mg/dL (<130); Osmolality Calculated 296 mOsm/kg (285-295); Potassium 4.2 mmol/L (3.5-5.1); Prostate Specific Antigen 1.5 ng/mL (< OR = 4.0); Sodium 144 mmol/L (136-145); Total Protein 7.2 g/dL (6.4-8.2); Triglycerides 111 mg/dL (0-150)
== END 2023-01-05 06:58 | disposition home or self-care (01) ==
LOC: CHSLAB 06:59
PROVIDERS: PCP Internal Medicine; Visit Provider Internal Medicine
DX: I10 Essential (primary) hypertension (principal); E78.5 Hyperlipidemia, unspecified; Z12.5 Encounter for screening for malignant neoplasm of prostate
CPT/HCPCS: 36415; 80053; 80061; 81003; 84153; 85025; G0103

== ENCOUNTER 2023-09-21 06:43 | Outpatient (CLI) | payer MEDICARE, SELFPAY ==
[2023-09-21 07:11] LABS: Basophils Absolute Auto 0.06 K/mm3 (0.00-0.10); Basophils Percent Auto 0.7 % (0.0-1.0); Eosinophils Absolute Auto 0.37 K/mm3 (0.02-0.50); Eosinophils Percent Auto 4.3 % (1.0-6.0); Hematocrit 42.2 % (37.0-46.0); Hemoglobin 14.2 g/dL (12.4-15.3); Immature Granulocyte Absolute 0.03 K/mm3 (0.00-0.00); Immature Granulocyte Percent A 0.4 % (0.0-0.0); Lymphocytes Absolute Auto 2.12 K/mm3 (1.10-4.50); Lymphocytes Percent Auto 24.8 % (18.0-42.0); Mean Corpuscular HGB Conc 33.6 g/dL (32.0-36.0); Mean Corpuscular Hemoglobin 29.8 pg (27.0-31.0); Mean Corpuscular Volume 88.7 fL (78.0-102.0); Mean Platelet Volume 11.1 fl (8.7-11.0); Monocytes Absolute Auto 0.56 K/mm3 (0.10-0.90); Monocytes Percent Auto 6.5 % (2.0-11.0); Neutrophils Absolute Auto 5.4 K/mm3 (1.7-7.2); Neutrophils Percent Auto 63.3 % (50.0-70.0); Platelet Count Result 200 K/mm3 (150-420); Red Blood Count 4.76 M/mm3 (4.70-6.10); Red Cell Distribution Width 12.6 % (11.6-14.4); White Blood Count 8.6 K/mm3 (4.8-10.8)
[2023-09-21 07:47] LABS: Alanine Aminotransferase 19 U/L (16-63); Albumin Level 3.6 g/dL (3.4-5.0); Alkaline Phosphatase 137 U/L (46-116); Anion Gap 9 mmol/L (8-16); Aspartate Amino Transferase 12 U/L (15-37); Bilirubin,Total 0.6 mg/dL (0.00-1.00); Blood Urea Nitrogen 14 mg/dL (7-18); Calcium 8.6 mg/dL (8.5-10.1); Carbon Dioxide 28 mmol/L (21-32); Chloride 105 mmol/L (98-108); Cholesterol 179 mg/dL (0-200); Estimated Glomerular Filt Rate > 60; Glucose 103 mg/dL (70-99); HDL Direct 41 mg/dL (40-60); LDL Cholesterol Calculated 116 mg/dL (<130); Osmolality Calculated 294 mOsm/kg (285-295); Potassium 4.3 mmol/L (3.5-5.1); Sodium 142 mmol/L (136-145); Total Protein 6.6 g/dL (6.4-8.2); Triglycerides 108 mg/dL (0-150)
== END 2023-09-21 06:44 | disposition home or self-care (01) ==
LOC: CHSLAB 06:45
PROVIDERS: PCP Internal Medicine; Visit Provider Internal Medicine
DX: I10 Essential (primary) hypertension (principal); E78.5 Hyperlipidemia, unspecified
CPT/HCPCS: 36415; 80053; 80061; 85025

== ENCOUNTER 2023-09-29 12:39 | Outpatient (CLI) | payer MEDICARE, MEDICAID, SELFPAY ==
--- NOTE | ~2023-09-29 | CT_ITS ---
EXAMINATION: CT lung screening DATE: 09/29/2023 13:03 INDICATION: Lung cancer screening TECHNIQUE: Computed tomography (CT) of the chest was performed without intravenous contrast. The dose -length product was 107.64 mGy-cm. Automated exposure control and iterative reconstruction technique were employed. COMPARISON: None FINDINGS: No significant pleural or pericardial effusion. No thoracic lymphadenopathy. There is ather osclerosis of the aorta and coronary arteries. Small hiatal hernia. Upper abdomen is unremarkable. No endobronchial lesions. There is pleural thickening of the minor fissure. No endobronchial lesions. N o pneumothorax. Moderate thoracic spondylosis. There is diffuse idiopathic skeletal hyperostosis (DIS H) of the thoracic spine. No suspicious pulmonary nodules or masses. IMPRESSION: 1. Lung-RADS category 1: Negative. Continue annual screening with noncontrast low-dose chest CT in 12 months. Reviewed, dictated and finalized at location [facility]. LACTATION IMPRESSION: 1. Lung-RADS category 1: Negative. Continue annual screening with noncontrast l ow-dose chest CT in 12 months.
--- NOTE | ~2023-09-29 | XR_ITS ---
EXAM: XR shoulder LT min 2V DATE: 09/29/2023 13:03 HISTORY: LT shoulder pain X 3 months, NKI . COMPARISON: None available. FINDINGS: Normal mineralization. No fracture or dislocation. No lytic or blastic lesion. Mild degene rative change at the AC joint and glenohumeral joint. No erosion or periosteal change. Soft tissues w ithin normal limits. 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 Reviewed, dictated and finalized at location [facility]. [employer]IATE
== END 2023-09-29 12:40 | disposition home or self-care (01) ==
LOC: CHSIMG 12:42
PROVIDERS: PCP Internal Medicine; Visit Provider Internal Medicine
DX: Z12.2 Encounter for screening for malignant neoplasm of respiratory organs (principal); Z87.891 Personal history of nicotine dependence; M19.012 Primary osteoarthritis, left shoulder
CPT/HCPCS: 71271; 73030

== ENCOUNTER 2023-10-15 07:55 | Outpatient (RCR) | payer MEDICARE, MEDICAID, SELFPAY ==
--- NOTE | 2023-10-15 08:33 | OPREHPOC ---
Outpatient Therapy Plan of Care This is a Multidisciplinary Plan of Care that may contain components documented by all disciplines (PT, OT, and ST.) PT Problem 1 PT Problem #1 Knowledge Deficit PT Goal 1 Goal independent and compliant with HEP Target Visit 3 PT Problem 2 PT Problem #2 Pain PT Goal 1 Goal 1. no pain in the L shoulder at rest. 2. patient to sleep through the night without being woken up due to pain. 3. 1/10 pain at worst in the L shoulder. Target Visit 6 PT Problem 3 PT Problem #3 Impaired Range of Motion PT Goal 1 Goal 1. 145 degrees passive L shoulder flexion 2. 130 degrees or better active L shoulder flexion 3. 70 degrees or better active L shoulder ER
--- NOTE | 2023-10-15 08:34 | PTOPEVAL1 ---
Assessment and note entered by JT File, PT Evaluation Information Assessment Status Evaluation Diagnosis L shoulder pain Onset 10/07/23 Subjective Information patient reports he has a little OA in the L shoulder. he reports he got a cortisone shot in the L shoulder. he reports the injection helped a lot. he reports he has increased pain in the L shoulder with laying on the L side. he reports he is only able to lay for 15 minutes or so on the L side. he reports the shoulder feels like a toothache all the time. he reports the pain is located to the side of the shoulder. he reports before the shot, he was unable to lift the arm much, but since the shot he is able to raise it and use it to perform daily activities. Reported Pain Level Pain Score 1: Self Report Assessment PT Clinical Summary mr. reilly is a 67 yo man who presents to skilled PT services for evaluation and treatment of L shoulder pain. he presents today with decreased L shoulder rom, and positive special testing for RTC pathology/impingement of the L shoulder. however, he is much improved since his injection to the L shoulder. he would benefit from continued skilled PT to improve his active rom of the L shoulder, and return to pain free sleeping/ daily activities to improve his quality of life. Plan of Care Interventions Electrical Stimulation,Hot Pack/Cold Pack,Manual Therapy,Neuro Re-education,Patient/Caregiver Educati,Therapeutic Activities,Therapeutic Exercise PT Services Indicated Yes Treatment Frequency and 2x weekly for 6 visits Duration These treatments will address the objective and functional deficits as defined above. The patient will be advanced safely and appropriately in order for the patient to progress towards his/her prior level of function. Additional exercises will be introduced and as well as a comprehensive home exercise program upon discharge, if needed, ?to ensure carryover of functional gains achieved in the clinic. This treatment plan has been reviewed and agreement upon by the patient.
== END 2023-10-27 20:00 | disposition home or self-care (01) ==
LOC: CHSPT 07:55
PROVIDERS: PCP Internal Medicine; Visit Provider Internal Medicine
DX: M25.512 Pain in left shoulder (principal)
CPT/HCPCS: 97110; 97161

== ENCOUNTER 2024-03-24 11:13 | Outpatient (CLI) | payer MEDICARE, MEDICAID, SELFPAY ==
--- NOTE | ~2024-03-24 | XR_ITS ---
XR chest 2V DATE: 03/24/2024 11:40 INDICATION: Cough and wheezing. Hypertension. TECHNIQUE: PA and lateral views COMPARISON: 06/18/2021 2 view chest 09/29/2023 CT lung screening FINDINGS: Normal heart size. Thoracic aortic calcification. No hilar or mediastinal enlargement. Mild bilateral apical capping. Moderate bilateral hyperinflation. Mild discoid atelectasis or scarring at the right lung base. The lungs otherwise appear clear of infi ltrate or consolidation. No pleural effusion or pulmonary vascular congestion or pneumothorax. Osteopenia. Diffuse etiopathic skeletal hyperostosis of the thoracic spine. IMPRESSION: Mild discoid atelectasis or scarring at the right lung base Moderate hyperinflation Aortic atherosclerosis Reviewed, dictated and finalized at location [facility].
[2024-03-24 11:51] LABS: Appearance Urine Clear (Clear); Bilirubin Urine Negative (Negative); Blood Urine Negative (Negative); Color Urine Yellow (Yellow); Glucose Urine UA Negative (Negative); Ketones Urine Negative (Negative); Leukocyte Esterase Ur Negative (Negative); Nitrate Urine Negative (Negative); Protein Urine Trace (Negative); Specific Grav Ur 1.025 (1.010-1.020)
[2024-03-24 11:52] LABS: Basophils Absolute Auto 0.05 K/mm3 (0.00-0.10); Basophils Percent Auto 0.6 % (0.0-1.0); Eosinophils Absolute Auto 0.27 K/mm3 (0.02-0.50); Eosinophils Percent Auto 3.1 % (1.0-6.0); Hematocrit 42.1 % (37.0-46.0); Hemoglobin 13.5 g/dL (12.4-15.3); Immature Granulocyte Absolute 0.03 K/mm3 (0.00-0.00); Immature Granulocyte Percent A 0.3 % (0.0-0.0); Lymphocytes Absolute Auto 1.73 K/mm3 (1.10-4.50); Lymphocytes Percent Auto 19.6 % (18.0-42.0); Mean Corpuscular HGB Conc 32.1 g/dL (32-36); Mean Corpuscular Hemoglobin 29.1 pg (27.0-31.0); Mean Corpuscular Volume 90.7 fL (78.0-102.0); Mean Platelet Volume 10.8 fl (8.7-11.0); Monocytes Absolute Auto 0.61 K/mm3 (0.10-0.90); Monocytes Percent Auto 6.9 % (2.0-11.0); Neutrophils Absolute Auto 6.15 K/mm3 (1.70-7.20); Neutrophils Percent Auto 69.5 % (50.0-70.0); Platelet Count Result 170 K/mm3 (150-420); Red Blood Count 4.64 M/mm3 (4.70-6.10); Red Cell Distribution Width 12.6 % (11.6-14.4); White Blood Count 8.8 K/mm3 (4.8-10.8)
[2024-03-24 11:58] LABS: Add Urine Microscopic? YES; RBC Urine None seen /hpf (0-2); WBC Urine None seen /hpf (0-3)
[2024-03-24 11:59] LABS: Bacteria Urine Trace /hpf; Mucus Urine Moderate /lpf
[2024-03-24 12:35] LABS: Alanine Aminotransferase 16 U/L (16-63); Albumin Level 3.8 g/dL (3.4-5.0); Alkaline Phosphatase 134 U/L (46-116); Anion Gap 7 mmol/L (4-12); Aspartate Amino Transferase 14 U/L (15-37); Bilirubin,Total 0.7 mg/dL (0.00-1.00); Blood Urea Nitrogen 14 mg/dL (7-18); Calcium 8.9 mg/dL (8.5-10.1); Carbon Dioxide 27 mmol/L (21-32); Chloride 103 mmol/L (98-108); Cholesterol 160 mg/dL (0-200); Estimated Glomerular Filt Rate > 60; Glucose 98 mg/dL (70-99); HDL Direct 39 mg/dL (40-60); LDL Cholesterol Calculated 100 mg/dL (<130); Osmolality Calculated 284 mOsm/kg (285-295); Potassium 4.2 mmol/L (3.5-5.1); Prostate Specific Antigen 2.9 ng/mL (< OR = 4.0); Sodium 137 mmol/L (136-145); Thyroid Stimulating Hormone 0.75 uIU/mL (0.36-3.74); Total Protein 7.1 g/dL (6.4-8.2); Triglycerides 104 mg/dL (0-150)
== END 2024-03-24 11:14 | disposition home or self-care (01) ==
LOC: CHSLAB 11:16
PROVIDERS: PCP Internal Medicine; Visit Provider Internal Medicine
DX: Z12.5 Encounter for screening for malignant neoplasm of prostate (principal); E78.5 Hyperlipidemia, unspecified; I10 Essential (primary) hypertension; R05.9 Cough, unspecified; R06.2 Wheezing
CPT/HCPCS: 36415; 71046; 80053; 80061; 81001; 84153; 84443; 85025; G0103

== ENCOUNTER 2024-09-16 10:03 | Outpatient (CLI) | payer MEDICARE, MEDICAID, SELFPAY ==
--- NOTE | ~2024-09-16 | XR_ITS ---
Right Knee Technique: AP, lateral, and sunrise views were obtained. Clinical History: Pain Findings: No fracture or dislocation is seen. Osseous alignment is anatomic. Joint spaces are preserv ed without degenerative or erosive change. Soft tissues are unremarkable. No joint effusion is seen. Impression: Unremarkable right knee radiographs. Reviewed, dictated and finalized at location . BOSS Impression: Unremarkable right knee radiographs.
[2024-09-16 10:32] LABS: Hematocrit 39.6 % (37.0-46.0); Hemoglobin 13.5 g/dL (12.4-15.3); Mean Corpuscular HGB Conc 34.1 g/dL (32-36); Mean Corpuscular Hemoglobin 29.9 pg (27.0-31.0); Mean Corpuscular Volume 87.8 fL (78.0-102.0); Platelet Count Result 207 K/mm3 (150-420); Red Blood Count 4.51 M/mm3 (4.70-6.10); White Blood Count 9.1 K/mm3 (4.8-10.8)
[2024-09-16 11:02] LABS: Alanine Aminotransferase 18 U/L (16-63); Albumin Level 3.8 g/dL (3.4-5.0); Alkaline Phosphatase 140 U/L (46-116); Anion Gap 8 mmol/L (4-12); Aspartate Amino Transferase 13 U/L (15-37); Bilirubin,Total 0.7 mg/dL (0.00-1.00); Blood Urea Nitrogen 14 mg/dL (7-18); CRP 0.7 mg/dL (0.0-0.9); Calcium 8.8 mg/dL (8.5-10.1); Carbon Dioxide 29 mmol/L (21-32); Chloride 106 mmol/L (98-108); Estimated Glomerular Filt Rate > 60; Glucose 102 mg/dL (70-99); Osmolality Calculated 296 mOsm/kg (285-295); Potassium 4.3 mmol/L (3.5-5.1); Sodium 143 mmol/L (136-145); Total Protein 6.8 g/dL (6.4-8.2); Uric Acid 5.5 mg/dL (3.5-7.2)
== END 2024-09-16 10:04 | disposition home or self-care (01) ==
LOC: CHSLAB 10:04
PROVIDERS: PCP Internal Medicine; Visit Provider Internal Medicine
DX: M25.561 Pain in right knee (principal); M25.461 Effusion, right knee
CPT/HCPCS: 36415; 73562; 80053; 84550; 85027; 86140

== ENCOUNTER 2024-10-10 08:13 | Outpatient (CLI) | payer MEDICARE, MEDICAID, SELFPAY ==
--- NOTE | ~2024-10-10 | CT_ITS ---
EXAMINATION: CT lung screening DATE: 10/10/2024 08:29 INDICATION: PERSONAL HX OF NICOTINE DEPENDENCE - current smoker TECHNIQUE: Computed tomography (CT) of the chest was performed without intravenous contrast. Addition al 3D reconstructions utilizing coronal maximum intensity projection (MIP) were performed. Automated exposure control and iterative reconstruction technique were employed. The dose-length product was 99 .08 mGy-cm. COMPARISON: 09/29/2023 FINDINGS: Mild bibasilar atelectasis in the right lower lobe and minimal discoid atelectasis in the left lower lobe. No suspicious pulmonary nodules, pneumonia, pulmonary edema, pleural effusion or pneumothorax. Heart size is normal. Atherosclerotic coronary artery calcific location. No pericardial effusion. Tho racic aorta is normal in caliber. No pathologically enlarged thoracic lymphadenopathy. Small sliding- type hiatal hernia. Chronic mild anterior wedging of a few mid thoracic vertebral bodies with bridgin g osteophytes at multiple levels consistent with diffuse idiopathic skeletal hyperostosis (DISH). IMPRESSION: 1. Lung-RADS category 1: Negative. Continue annual screening with noncontrast low-dose chest CT in 12 months. Reviewed, dictated and finalized at location A. CLEANING HAND IMPRESSION: 1. Lung-RADS category 1: Negative. Continue annual screening with noncontrast l ow-dose chest CT in 12 months.
== END 2024-10-10 08:14 | disposition home or self-care (01) ==
LOC: CHSIMG 08:16
PROVIDERS: PCP Internal Medicine; Visit Provider Internal Medicine
DX: Z12.2 Encounter for screening for malignant neoplasm of respiratory organs (principal); Z87.891 Personal history of nicotine dependence
CPT/HCPCS: 71271

== ENCOUNTER 2025-01-17 12:59 | Outpatient (CLI) | payer MEDICARE, MEDICAID, SELFPAY ==
--- NOTE | 2025-01-17 13:14 | ECHO_ITS ---
Patient Info Name: Rj Kumar Age: 69 years : 1955 Gender: Male Ht: 70 in Wt: 180 lbs BSA: 2.02 m2 HR: 65 bpm BP: 116 / 63 mmHg Heart Rhythm: Sinus Rhythm Technical Quality: Fair Exam Date: 01/17/2025 12:27 PM Exam Location: Echo Lab Patient Status: Outpatient Admit Date: 01/17/2025 Staff Ordering Physician: Barry Reilly MD Blood Bank Laboratory Technician: Aleyda Martinez RDCS Attending Provider: Barry Reilly MD Exam Type: CA echo doppler color flow Study Info Indications - A-fib Complete two-dimensional, color flow and Doppler transthoracic echocardiogram is performed. Summary 1. Complete two-dimensional, color flow and Doppler transthoracic echocardiogram is performed. 2. Left ventricular chamber dimension is normal. 3. Left ventricular systolic function is normal, estimated at 60-65%. 4. There is mild concentric increased left ventricular wall thickness. 5. The left ventricular diastolic function is grade I diastolic dysfunction. 6. E/e' 6 is not elevated. 7. Left atrial chamber dimension is mildly enlarged. 8. There is mild mitral valve regurgitation. 9. There is trace tricuspid valve regurgitation. 10. No pulmonary hypertension, estimated pulmonary arterial systolic pressure is 32 mmHg. Left Ventricle E/e' 6 is not elevated. Left ventricular chamber dimension is normal. Left ventricular systolic function is normal, estimated at 60-65%. There is mild concentric increased left ventricular wall thickness. The left ventricular diastolic function is grade I diastolic dysfunction. Right Ventricle Right ventricular systolic function is normal and with normal TAPSE 2.2 cm. Right ventricular chamber dimension is normal. Left Atria Left atrial chamber dimension is mildly enlarged. Right Atria Right atrial chamber dimension is normal. Aortic Valve The aortic valve is trileaflet. There is no aortic valve stenosis. There is no aortic valve regurgitation. Pulmonic Valve There is no pulmonic regurgitation. Mitral Valve There is no mitral valve stenosis. There is mild mitral valve regurgitation. Tricuspid Valve There is trace tricuspid valve regurgitation. No pulmonary hypertension, estimated pulmonary arterial systolic pressure is 32 mmHg. Pericardium/Pleural There is no pericardial effusion. Inferior Vena Cava Normal inferior vena cava with >50% collapse upon inspiration consistent with normal right atrial pressure, 5 mmHg. Aorta The aortic root size at the sinus of Valsalva is normal. Left Ventricular Outflow Tract Name Value Normal LVOT 2D LVOT Diameter 2.1 cm LVOT Doppler LVOT Peak Velocity 101 cm/s LVOT Peak Gradient 4 mmHg LVOT Mean Gradient 0 mmHg LVOT VTI 26 cm LVOT VTI/AV VTI Ratio 0.8 LVOT Stroke Volume 88 ml Pulmonic Valve Name Value Normal PV Doppler PV Peak Velocity 82 cm/s PV Peak Gradient 3 mmHg Mitral Valve Name Value Normal MV Doppler MV Decel [place] 240 cm/s2 MV PHT 83 ms MV Area (PHT) 2.6 cm2 4.0-5.0 MV Diastolic Function MV E Peak Velocity 69 cm/s MV A Peak Velocity 70 cm/s MV E/A 1.0 MV Decel Time 286 ms Tricuspid Valve Name Value Normal TV Regurgitation Doppler TR Peak Velocity 258 cm/s TR Peak Gradient 27 mmHg Estimated PAP/RSVP RA Pressure 5 mmHg <=5 PA Systolic Pressure 32 mmHg <36 RV Systolic Pressure 32 mmHg <36 Aortic Valve Name Value Normal AV Doppler AV Peak Velocity 123 cm/s AV Peak Gradient 6 mmHg AV Mean Gradient 3 mmHg AV VTI 32 cm AV Area (Cont Eq VTI) 2.8 cm2 >=3.0 AV Area (Cont Eq Marc) 2.8 cm2 AV V1/V2 Ratio 0.82 AV Regurgitation 2D LVOT Area 3.4 cm2 Ventricles Name Value Normal LV Dimensions 2D/MM IVS Diastolic Thickness (2D) 1.2 cm 0.6-1.0 LVID Diastole (2D) 5.0 cm 4.2-5.8 LVIW Diastolic Thickness (2D) 0.9 cm 0.6-1.0 LVID Systole (2D) 3.3 cm 2.5-4.0 LVOT Diameter 2.1 cm LV Mass (2D Cubed) 199.06 g 88.00-224.00 LV Mass Index (2D Cubed) 99 g/m2 49-115 Relative Wall Thickness (2D) 0.37 LV Fractional Shortening/Ejection Fraction 2D/MM LV Fractional Shortening (2D) 34 % 25-43 LV EF (2D Teicholz) 62 % 52-72 LV Diastolic Volume (4C MOD) 90 ml LV EF (4C MOD) 59 % LV Diastolic Volume (2C MOD) 131 ml LV EF (2C MOD) 69 % LV Diastolic Volume (BP MOD) 109 ml 62-150 LV Diastolic Volume Index (BP MOD) 54 ml/m2 34-74 LV Systolic Volume (BP MOD) 42 ml 21-61 LV Systolic Volume Index (BP MOD) 21 ml/m2 11-31 LV EF (BP MOD) 62 % 52-72 LV Diastolic Length (4C) 8.7 cm LV Systolic Length (4C) 6.5 cm LV Stroke Volume (4C MOD) 53 ml Atria Name Value Normal LA Dimensions LA Volume (4C A-L) 63 ml LA Volume (BP A-L) 64 ml RA Dimensions RA Area (4C) 18.5 cm2 <=18.0 Report Signatures
[2025-01-17 13:15] LABS: Basophils Absolute Auto 0.07 K/mm3 (0.00-0.10); Basophils Percent Auto 0.8 % (0.0-1.0); Eosinophils Absolute Auto 0.41 K/mm3 (0.02-0.50); Eosinophils Percent Auto 4.8 % (1.0-6.0); Hematocrit 39.5 % (37.0-46.0); Hemoglobin 12.7 g/dL (12.4-15.3); Immature Granulocyte Absolute 0.02 K/mm3 (0.00-0.00); Immature Granulocyte Percent A 0.2 % (0.0-0.0); Lymphocytes Absolute Auto 2.16 K/mm3 (1.10-4.50); Lymphocytes Percent Auto 25.1 % (18.0-42.0); Mean Corpuscular HGB Conc 32.2 g/dL (32-36); Mean Corpuscular Hemoglobin 28.7 pg (27.0-31.0); Mean Corpuscular Volume 89.2 fL (78.0-102.0); Mean Platelet Volume 9.8 fl (8.7-11.0); Monocytes Absolute Auto 0.57 K/mm3 (0.10-0.90); Monocytes Percent Auto 6.6 % (2.0-11.0); Neutrophils Absolute Auto 5.37 K/mm3 (1.70-7.20); Neutrophils Percent Auto 62.5 % (50.0-70.0); Platelet Count Result 175 K/mm3 (150-420); Red Blood Count 4.43 M/mm3 (4.70-6.10); Red Cell Distribution Width 13.2 % (11.6-14.4); White Blood Count 8.6 K/mm3 (4.8-10.8)
[2025-01-17 13:20] LABS: Add Urine Microscopic? NO; Appearance Urine Clear (Clear); Bilirubin Urine Negative (Negative); Blood Urine Negative (Negative); Color Urine Yellow (Yellow); Glucose Urine UA Negative (Negative); Ketones Urine Negative (Negative); Leukocyte Esterase Ur Negative (Negative); Nitrate Urine Negative (Negative); Protein Urine Negative (Negative); Urobilinogen Urine 0.2 mg/dL (0.2-1.0)
[2025-01-17 13:59] LABS: Alanine Aminotransferase 13 U/L (16-63); Albumin Level 3.8 g/dL (3.4-5.0); Alkaline Phosphatase 142 U/L (46-116); Anion Gap 5 mmol/L (4-12); Aspartate Amino Transferase < 10 U/L (15-37); Bilirubin,Total 0.5 mg/dL (0.00-1.00); Blood Urea Nitrogen 12 mg/dL (7-18); Calcium 8.8 mg/dL (8.5-10.1); Carbon Dioxide 31 mmol/L (21-32); Chloride 107 mmol/L (98-108); Estimated Glomerular Filt Rate > 60; Free T4 Free Thyroxine 0.98 ng/dL (0.76-1.46); Glucose 86 mg/dL (70-99); Osmolality Calculated 294 mOsm/kg (285-295); Potassium 4.8 mmol/L (3.5-5.1); Sodium 143 mmol/L (136-145); Total Protein 6.7 g/dL (6.4-8.2)
--- OUTSIDE RECORDS SUMMARY | 2025-01-17 14:23 | XMS_ITS | CONTINUITY OF CARE DOCUMENT ---
Author Name jessica, sakinaser Address Unknown Organization [facility] Address [address] [address] [facility] [place] [address] Phone [phone] Care Team Providers Care Network Professional Name Role Phone Prashant De León MD Unavailable JOSE LUIS NUNEZ MD Unavailable JOSE LUIS NUNEZ MD Unavailable [phone] PROBLEMS Condition Status Date Provider Notes Depression active Prashant De León MD Schizophrenia active Prashant De León MD Tobacco abuse active Prashant De León MD Prolonged QT interval active Prashant De León MD ENCOUNTERS Date Type Provider Location Encounter Diag nosis - In-person encounter Office Visit Prashant De León MD [place] [facility] DepressionSchizophreniaTobacco abuseProlonged QT interval VITAL SIGNS Date Observation Value Provider blood pressure, diastolic, left arm 72 mm [Hg] Prashant De León MD blood pressure, systolic, left arm 136 mm [Hg] Prashant De León MD blood pressure, diastolic, right arm 74 m m[Hg] Prashant De León MD blood pressure, systolic, right arm 140 m m[Hg] Prashant De León MD blood pressure, diastolic 74 mm[Hg] Ralph De León MD blood pressure, systolic 140 mm[Hg] Houston De León MD pulse rate 94 /min Prashant De León MD oxygen saturation, oximetry 95 % Prashant De León MD respiratory rate E&M 16 /min Jessica De León MD Body Mass Index (Ratio) 25.11 kg/m2 Ladonna De León MD weight E&M 175 [lb_av] Prashant De León MD height E&M 70 [in_i] Prashant De León MD ALLERGIES No Known Drug Allergies HISTORY OF MEDICATION USE No Known Medication SOCIAL HISTORY Date Observation Value Provider social history E&M S moking History: P atient currently smokes every day. P atient has been counseled to quit. Prashant De León MD smoking/tobacco cess ation, patient education and counseling yes Prashant De León MD smoking status Current every day smoker M srini De León MD social history reviewed E&M revi ewed - no changes required Prashant De León MD INSURANCE PROVIDERS Payer name Policy type / Coverage type [facility] AND [facility] Medicaid 1 [id number] TREATMENT PLAN Date Name Performer Cardiology Prashant Macdonald Cardiology Prashant Macdonald Cardiology:Strongly advised to s top smoking. Prashant De León MD Cardiology:Pt is asy mptomatic. His venlafaxine should be discontinued, as per pt this was the latest medication added. This does cause QTc interval prolongation. As per pt, he has been on risperdone for a long period of time. Prashant De León MD HISTORY OF PROCEDURES Procedure Date Procedure Name Provider Procedure Notes S tatus SNOMED-CT: 367530199 554549 Current Medications Documented Prashant De León MD completed SNOMED-CT: 656080955 Smoking Cessation Counseling Prashant De León MD completed SNOMED-CT: 93528623 Physical Exam, Performed: Pulse Exam of Foot Prashant De eLón MD completed
[2025-01-17 14:27] LABS: NT Pro B Type Natriuretic Pept 107 pg/mL (0-125); Thyroid Stimulating Hormone 0.84 uIU/mL (0.36-3.74)
[2025-01-17 14:33] LABS: Free T3 2.97 pg/mL (2.18-3.98)
== END 2025-01-17 13:00 | disposition home or self-care (01) ==
PROVIDERS: PCP Internal Medicine; Visit Provider Internal Medicine
DX: I48.91 Unspecified atrial fibrillation (principal); R06.00 Dyspnea, unspecified
CPT/HCPCS: 36415; 80053; 81003; 83880; 84439; 84443; 84481; 85025; 93306

== ENCOUNTER 2025-04-16 08:03 | Inpatient (IN) | payer MEDICARE, MEDICAID, SELFPAY ==
[2025-04-16] VITALS (12 sets, daily range): BP systolic 105–156; BP diastolic 64–74; PULSE 84–100; RESP 16–29; TEMP 36.6–38.2; O2SAT 92–94; BMI 24.5
--- NOTE | 2025-04-16 | CONSULT_PTH ---
PATIENT: Rj Kumar LOC: [facility] U#:[id number] AGE/SX: 69/M ROOM: [facility] RE04/17/[address]: Vlad Rebollar MD : 1955 BED: 1 DIS: 04/19/2025 SPEC #: [id number] RECD: 04/17/25 11:07 STATUS: [place]UR[place] REQ #: [id number] MARIKA: 04/16/25 00:[address]: Vlad Rebollar DEPT: [facility] Consult RECD BY: Laura Pina MLT, ([facility]) ENTERED: 04/17/25 11:08 SP TYPE: Consult OTHR DR: MASON Neely MD Tissues: A - Peripheral Smear Procedures: Hematology Consult
--- NOTE | ~2025-04-16 | XR_ITS ---
Portable chest x-ray Comparison: 03/24/2024 Clinical History: Shortness of breath Findings: There is perihilar hazy airspace disease bilaterally. No pleural effusion evident. Cardio mediastinal silhouette is stable. Bones and soft tissues are unremarkable. Impression: Bilateral hazy perihilar airspace disease. This suggests central pulmonary edema versus possibly bila teral pneumonia. Correlate clinically. Reviewed, dictated and finalized at [facility]. Impression: Bilateral hazy perihilar airspace disease. This suggests central pulmonary kathy a versus possibly bilateral pneumonia. Correlate clinically.
--- NOTE | 2025-04-16 08:04 | ED_ITS ---
HPI - URI/Sore Throat General Chief Complaint: Upper Respiratory Infection Stated Complaint: congestion Time Seen by Provider: 04/16/25 08:04 Source: patient and EMS Mode of arrival: EMS Limitations: no limitations History of Present Illness HPI Narrative: Patient is a 69-year-old male with cough and congestion for the past week. He lives at a nursing facility[facility]halfway and said he has been somewhat short of breath from time to time this past week. He feels that he has a cold/virus. MD elicited complaint: cough and nasal congestion Pertinent past history: other ( AFib/Eliquis, hypertension) Onset (ago): week(s) ( 1) Consistency: constant Severity: moderate Pain scale (0-10): 1 Description of mucous: clear, watery and yellow Able to tolerate fluids by mouth: Yes Exacerbating factors: nothing Relieving factors: nothing Context: other ( patient is having cough and congestion for the past week here for evaluation of shortness of breath.) Associated symptoms: nasal congestion and cough Treatments prior to arrival: none Related Data Home Medications ?Medication ?Instructions ?Recorded ?Confirmed ?Last Taken ?Type amlodipine 5 mg tablet 5 mg PO DAILY 06/18/21 03/23/25 Unknown History quetiapine 100 mg tablet 100 mg PO DAILY 06/18/21 03/23/25 Unknown History zolpidem 10 mg tablet 10 mg PO DAILY 06/18/21 03/23/25 Unknown History pravastatin 10 mg tablet 10 mg PO DAILY 03/23/25 03/23/25 Unknown History apixaban 5 mg tablet (Eliquis) 5 mg PO BID 03/27/25 Unknown History atenolol 25 mg tablet 25 mg PO DAILY 03/27/25 Unknown History Allergies Allergy/AdvReac Type Severity Reaction Status Date / Time No Known Allergies Allergy Verified 04/16/25 08:08 Review of Systems 2 Review of Systems: All systems reviewed & are unremarkable except as noted in HPI and below Constitutional: Constitutional: Reports no additional constitutional complaints Eyes: Eyes: Reports no additional eye complaints ENT: Reports system reviewed and no additional complaints, except as documented Cardiovascular: Cardiovascular: Reports no additional cardiovascular complaints Respiratory: Respiratory: Reports no additional respiratory complaints Gastrointestinal: Gastrointestinal: Reports no additional gastrointestinal complaints Genitourinary: Genitourinary: Reports no additional male genitourinary complaints Musculoskeletal: Musculoskeletal: Reports no additional musculoskeletal complaints Integumentary/Breasts: Skin/Breast: Reports system reviewed and no additional complaints, except as docu Neurologic: Reports system reviewed and no additional complaints, except as documented Psychiatric: Psychiatric: Reports no additional psychiatric complaints Endocrine: Endocrine: Reports no additional endocrine complaints Hematologic/Lymphatic: Hematologic/Lymphatic: Reports no additional hematologic/lymphatic complaints Allergic/Immunologic: Allergic/Immunologic: Reports no additional allergic/immunologic complaints PMFSH Past Medical History Medical History Dyslipidemia Hypertension Depressed COPD (chronic obstructive pulmonary disease) Social History Social History Smoking status: Current every day smoker Exam 2 Const: General: healthy appearing Nutritional Appearance: well nourished Orientation/consciousness: patient oriented x3 Limitations: no limitations HENMT: Head: normal to inspection Ears: external ears normal F kathy/Nose/Sinus: Normal external nose present Eyes: Conjunctivae: conjunctivae normal Pupils: Equal, round and reactive pupils present EOM: EOMs intact bilaterally Neck: Neck: normal visual inspection Chest: Chest palpation & inspection: normal inspection of the chest Resp: Effort & Inspection: normal respiratory effort and not labored A uscultation: not clear to auscultation bilaterally, crackles ( Bilateral mid to lower perez), rales ( bilateral mid to lower perez), rhonchi ( bilateral diffuse), no wheezes, breath sounds present and diminished lung sounds ( throughout) Cardio: Rate: regular rate Rhythm: regular rhythm Heart sounds: no murmurs GI: Inspection: non-distended GI Palp: Yes Soft to palpation and No Tenderness to palpation present (GI) Auscultation: normal bowel sounds : General: Yes bladder normal to palpation Back/Spine/Pelvis: Back: no CVA tenderness Skin: General skin exam: normal color Rashes: no rashes Wounds: no wounds Neuro: General: patient oriented x3 Cranial nerves: Yes Nystagmus not present Speech: normal speech Gait exam (Neuro): Normal gait present Extrem: General: normal to inspection Psych: Mental Status: mental status grossly normal Affect: normal affect Attitude: cooperative Course Vital Signs Vital signs: Vital Signs Temperature 36.6 C 04/16/25 08:07 Pulse Rate 91 04/16/25 08:07 Respiratory Rate 20 04/16/25 08:07 Blood Pressure 144/68 H 04/16/25 08:07 Pulse Oximetry 93 04/16/25 08:07 Oxygen Delivery Room Air 04/16/25 08:07 Temperature 36.6 C 04/16/25 08:07 Pulse Rate 91 04/16/25 08:07 Respiratory Rate 20 04/16/25 08:07 Blood Pressure 144/68 H 04/16/25 08:07 Pulse Oximetry 94 04/16/25 08:11 Oxygen Delivery Room Air 04/16/25 08:11 MDM - URI/Sore Throat MDM Narrative Medical decision making narrative: patient is a 69-year-old male with cough congestion and upper respiratory complaints. We will do a workup at this time. Lab Data Attestation: I reviewed the patient's lab results. 04/16/25 08:42 04/16/25 08:42 Labs: Lab Results 04/16/25 04/16/25 Range/Units 08:42 08:44 WBC 22.1 H (4.8-10.8) K/mm3 RBC 4.41 L (4.70-6.10) M/mm3 Hgb 12.5 (12.4-15.3) g/dL Hct 38.5 (37.0-46.0) % MCV 87.3 (78.0-102.0) fL MCH 28.3 (27.0-31.0) pg MCHC 32.5 (32-36) g/dL RDW 12.9 (11.6-14.4) % Plt Count 231 (150-420) K/mm3 MPV 10.6 (8.7-11.0) fl Immature Gran % (Auto) Not Reportable Neut % (Auto) Not Reportable Lymph % (Auto) Not Reportable [place] % (Auto) Not Reportable Eos % (Auto) Not Reportable Baso % (Auto) Not Reportable Lymph # (Auto) Not Reportable [place] # (Auto) Not Reportable Eos # (Auto) Not Reportable Baso # (Auto) Not Reportable Abs Immat Gran (auto) Not Reportable Absolute Neuts (auto) Not Reportable Absolute Nucleated RBC Not Reportable Band Neutrophils % Pending Nucleated RBC % Not Reportable Platelet Estimate Pending Schistocytes Pending Sodium 137 (137-145) mmol/L Potassium 4.2 (3.4-5.0) mmol/L Chloride 106 (98-107) mmol/L Carbon Dioxide 26 (22-30) mmol/L Anion Gap 5 (4-12) mmol/L BUN 12 (9-20) mg/dL Creatinine 1.02 (0.7-1.3) mg/dL Estim Creat Clear Calc 62 ml/min Estimated GFR > 60 (59 - ) Glucose 131 H (65-110) mg/dL Calculated Osmolality 285 (285-295) mOsm/kg Lactic Acid 1.4 (0.4-2.0) mmol/L Calcium 8.6 (8.4-10.2) mg/dL Total Bilirubin 0.8 (0.2-1.3) mg/dL AST 26 (17-59) U/L ALT 23 (6-50) U/L Alkaline Phosphatase 124 (38-126) U/L Troponin I Pending NT-Pro-B Natriuret Pep 432 H (19.9-100) pg/mL Total Protein 7.3 (6.3-8.2) g/dL Albumin 3.9 (3.5-5.1) g/dL Imaging Data Attestation: I personally reviewed and interpreted this imaging study as follows: Radiologist's impression: chest x-ray shows Impression: Bilateral hazy perihilar airspace disease. This suggests central pulmonary edema versus possibly bilateral pneumonia. Correlate clinically. ECG Data EKG #1: Attestation: I personally reviewed and interpreted this ECG as follows: ECG completion date: 04/16/25 ECG completion time: 08:49 EKG Interpretation: normal rate, sinus rhythm, no ectopy, non-specific ST changes, normal QRS, normal QT and NL axis Discharge Plan Discharge Clinical Impression: Sepsis due to pneumonia Patient Disposition: Acute Care Hospital [facility] Condition: Stable Patient Language: British Prescriptions: No Action amlodipine 5 mg tablet 5 mg PO DAILY quetiapine 100 mg tablet 100 mg PO DAILY zolpidem 10 mg tablet 10 mg PO DAILY albuterol sulfate 90 mcg/actuation HFA aerosol inhaler 2 puff inhalation QID Qty: 8.5 0RF pravastatin 10 mg tablet 10 mg PO DAILY atenolol 25 mg tablet 25 mg PO DAILY Eliquis 5 mg tablet 5 mg PO BID Follow-up/Referrals: Barry Reilly MD [Primary Care Provider] - Time of Disposition: 09:50
--- OUTSIDE RECORDS SUMMARY | 2025-04-16 08:04 | XMS_ITS | CONTINUITY OF CARE DOCUMENT ---
Author Name jessica, sakinaser Address Unknown Organization [facility] Address [address] [place] [address] Phone [phone] Care Team Providers Care Pediatric Dental Hygienist Name Role Phone Prashant De León MD Unavailable [phone] JOSE LUIS NUNEZ MD Unavailable JOSE LUIS NUNEZ MD Unavailable PROBLEMS Condition Status Date Provider Notes Depression active Prashant De León MD Schizophrenia active Prashant De León MD Tobacco abuse active Prashant De León MD Prolonged QT interval active Prashant De León MD ENCOUNTERS Date Type Provider Location Encounter Diag nosis - In-person encounter Office Visit Prashant De León MD [place] [facility] DepressionSchizophreniaTobacco abuseProlonged QT interval VITAL SIGNS Date Observation Value Provider blood pressure, diastolic, left arm 72 mm [Hg] Prashant De León MD blood pressure, systolic, left arm 136 mm [Hg] Prashant De León MD blood pressure, diastolic, right arm 74 m m[Hg] Prashant De eLón MD blood pressure, systolic, right arm 140 [...] Payer name Policy type / Coverage type [facility] Medicaid 1 [id number] TREATMENT PLAN Date Name Performer Cardiology Prashant [...] Name Provider Procedure Notes S tatus SNOMED-CT: 881765539 019266 Current Medications Documented Prashant De León MD completed SNOMED-CT: 866748488 Smoking Cessation Counseling Prashant De León MD completed SNOMED-CT: 69741076 Physical Exam, Performed: Pulse Exam of Foot Prashant De León MD completed
--- NOTE | 2025-04-16 08:06 | ECG_ITS ---
Test Date: 2025-04-16 08:22:03 Measurements Intervals [place] Rate: 90 P: 63 NM: 164 QRS: 72 QRSD: 108 T: 59 QT: 366 QTc: 449 Interpretive Statements SINUS RHYTHM INCOMPLETE RIGHT BUNDLE BRANCH BLOCK BASELINE ARTIFACT- V2-V5 BORDERLINE ECG No previous ECG available for comparison Electronically Signed On 04-16-2025 08:30:02 CDT by Jamie Jimenes D.O.
--- OUTSIDE RECORDS SUMMARY | 2025-04-16 08:41 | XMS_ITS | CONTINUITY OF CARE DOCUMENT ---
Author Name jessica, sakinaser Address Unknown Organization [facility] Address [address] [place] [address] Phone [phone] Care Team Providers Care Watchstander Name Role Phone Prashant De León MD Unavailable JOSE LUIS NUNEZ MD Unavailable [phone] JOSE LUIS NUNEZ MD Unavailable [phone] PROBLEMS Condition Status Date Provider Notes Depression active Prashant De León MD Schizophrenia active Prashant De León MD Tobacco abuse active Prashant De León MD Prolonged QT interval active Prashant De León MD ENCOUNTERS Date Type Provider Location Encounter Diag nosis - In-person encounter Office Visit Prashant De León MD [place] Office DepressionSchizophreniaTobacco abuseProlonged QT interval VITAL SIGNS [...] Payer name Policy type / Coverage type [facility] AND [facility][1] Medicaid 1 [id number] TREATMENT PLAN Date Name Performer Cardiology Prashant [...] Name Provider Procedure Notes S tatus SNOMED-CT: 060117499 019429 Current Medications Documented Prashant De León MD completed SNOMED-CT: 434351981 Smoking Cessation Counseling Prashant De León MD completed SNOMED-CT: 90716647 Physical Exam, Performed: Pulse Exam of Foot Prashant De León MD completed
[2025-04-16 08:57] LABS: Hematocrit 38.5 % (37.0-46.0); Hemoglobin 12.5 g/dL (12.4-15.3); Mean Corpuscular HGB Conc 32.5 g/dL (32-36); Mean Corpuscular Hemoglobin 28.3 pg (27.0-31.0); Mean Corpuscular Volume 87.3 fL (78.0-102.0); Mean Platelet Volume 10.6 fl (8.7-11.0); Platelet Count Result 231 K/mm3 (150-420); Red Blood Count 4.41 M/mm3 (4.70-6.10); Red Cell Distribution Width 12.9 % (11.6-14.4); White Blood Count 22.1 K/mm3 (4.8-10.8)
[2025-04-16 09:29] LABS: Alanine Aminotransferase 23 U/L (6-50); Albumin Level 3.9 g/dL (3.5-5.1); Alkaline Phosphatase 124 U/L (38-126); Anion Gap 5 mmol/L (4-12); Aspartate Amino Transferase 26 U/L (17-59); Bilirubin,Total 0.8 mg/dL (0.2-1.3); Blood Urea Nitrogen 12 mg/dL (9-20); Calcium 8.6 mg/dL (8.4-10.2); Carbon Dioxide 26 mmol/L (22-30); Chloride 106 mmol/L (98-107); Estimated CRCL calculation 62 ml/min; Estimated Glomerular Filt Rate > 60; Glucose 131 mg/dL (65-110); Osmolality Calculated 285 mOsm/kg (285-295); Potassium 4.2 mmol/L (3.4-5.0); Sodium 137 mmol/L (137-145); Total Protein 7.3 g/dL (6.3-8.2)
[2025-04-16 09:29] LABS: Lactic Acid Reflex 1.4 mmol/L (0.4-2.0)
[2025-04-16 09:37] LABS: NT Pro B Type Natriuretic Pept 432 pg/mL (19.9-100)
[2025-04-16] MEDS: PIPERACILLN/TAZ 3.375GM/NS50ML 3.375 GM/50 ML BAG IVPB (09:40)
[2025-04-16 09:52] LABS: Total Cells Counted 100
[2025-04-16 09:53] LABS: Band Neutrophils Percent 1 % (0-6); Eosinophils Absolute Manual 0.22 K/mm3 (0.02-0.50); Eosinophils Percent Manual 1 % (1-6); Lymphocytes Absolute Manual 0.88 K/mm3 (1.1-4.5); Lymphocytes Percent Manual 4 % (18-44); Monocytes Percent Manual 5 % (3-9); Neutrophils Absolute Manual 19.89 K/mm3 (1.3-6.7); Neutrophils Percent Manual 89 % (46-73); Platelet Estimate Adequate (Adequate); Schistocytes None Seen
[2025-04-16 10:00] LABS: Troponin I < 0.012 ng/mL (0.000-0.034)
[2025-04-16] MEDS: SODIUM CHLORIDE 0.9% IV 1,000 ML 999 ML IV CONT (10:05)
--- NOTE | 2025-04-16 10:30 | ADMGEN ---
This patient, Rj Kumar, was admitted to 2nd Floor Room 204-1. Patient/family oriented to hospital policies and general routines including ID bracelet, bed and alarms, visiting hours, pain management, procedures, bathroom and other care routines, personal items, smoking policy, room service/diet, and visiting hours. Information on how to activate the Rapid Response Team has been discussed. Patient/Family are encouraged to report perceived risks to care and to ask questions if they do not understand what they are told or what they should do.
--- NOTE | 2025-04-16 10:41 | P.HP_ITS ---
H&P: HPI History of Present Illness Date/Time: 04/16/25 10:41 Chief Complaint: SOB Narrative: patient is a 69-year-old male who presented to the emergency department with complaints of worsening shortness of breath. patient is [facility] a [facility] and states he feels as though he was starting to have a cold or virus but his shortness a breath has worsened over the last few days pain to the emergency department for evaluation. Patient does report he is an everyday smoker attempted OTC medications but no relief. Patient denied any chest pain, nausea, vomiting, fever chills and denies being around any sick contacts. patient reports he does have a past medical history atrial fibrillation, hypertension, HLD, and COPD. in the emergency department patient was found to have leukocytosis of 22.1 with CXR showing bilateral pneumonia with tachypnea oxygen stable 94% on room air. Patient was admitted to the medical unit for further evaluation and treatment. Upon arrival to the medical unit he was febrile at 100.8. Review of Systems Review of Systems: All systems reviewed & are unremarkable except as noted in HPI and below PMFSH Past Medical History Medical History Dyslipidemia Hypertension Depressed COPD (chronic obstructive pulmonary disease) Social History Social History Smoking status: Current every day smoker Meds Home Medications and Allergies Home Medications ?Medication ?Instructions ?Recorded ?Confirmed ?Type amlodipine 5 mg tablet 5 mg PO DAILY 06/18/21 04/16/25 History quetiapine 100 mg tablet 100 mg PO DAILY 06/18/21 04/16/25 History zolpidem 10 mg tablet 10 mg PO DAILY 06/18/21 04/16/25 History apixaban 5 mg tablet (Eliquis) 5 mg PO BID 03/27/25 04/16/25 History atenolol 25 mg tablet 25 mg PO DAILY 03/27/25 04/16/25 History atorvastatin 10 mg tablet 10 mg PO DAILY 04/16/25 04/16/25 History fluticasone propionate 50 1 spray intranasal DAILY PRN nasal 04/16/25 04/16/25 History mcg/actuation nasal congestion spray,suspension montelukast 10 mg tablet 10 mg PO QPM 04/16/25 04/16/25 History Allergies Allergy/AdvReac Type Severity Reaction Status Date / Time No Known Allergies Allergy Verified 04/16/25 08:08 Vital Signs Vital Signs - 24 hr 04/16/25 08:07 04/16/25 08:11 04/16/25 08:30 Temperature 97.8 F Pulse Rate 91 85 Respiratory Rate 20 28 H Blood Pressure 144/68 H 140/64 Pulse Oximetry 93 94 94 Oxygen Delivery Room Air Room Air Room Air 04/16/25 09:00 04/16/25 09:30 04/16/25 10:00 Temperature Pulse Rate 86 89 93 Respiratory Rate 29 H 28 H 27 H Blood Pressure 139/64 147/67 H 156/74 H Pulse Oximetry 92 93 93 Oxygen Delivery Room Air Room Air 04/16/25 10:24 Temperature 97.9 F Pulse Rate 93 Respiratory Rate 27 H Blood Pressure 156/74 H Pulse Oximetry 93 Oxygen Delivery Room Air Exam Narrative: Pleasant gentleman Const: General: comfortable and no acute distress HENMT: Ears: TM's normal bilaterally Face/Nose/Sinus: Normal nares present Mouth: Yes moist mucous membranes Eyes: General: appearance normal, both eyes and all related structures Sclera: sclerae normal Pupils: Equal, round and reactive pupils present EOM: EOMs intact bilaterally Neck: Neck: supple and no JVD Resp: Auscultation: diminished lung sounds bilateral (Right>Left) throughout Other: Tachypnea, productive cough Cardio: Rate: regular rate Rhythm: regular rhythm GI: GI Palp: Yes Soft to palpation Auscultation: normal bowel sounds Skin: General skin exam: normal color and no rashes or lesions noted Wounds: no wounds Other: warm to touch mild diaphoresis, Temp 100.8 Neuro: General: gait normal Speech: normal speech Motor exam (neuro): 5/5 motor strength present throughout Sensory Exam: normal sensation Extrem: General: normal to inspection Psych: Mental Status: mental status grossly normal Affect: normal affect H&P: Results Labs Labs: Short CBC 04/16/25 Range/Units 08:42 WBC 22.1 H (4.8-10.8) K/mm3 Hgb 12.5 (12.4-15.3) g/dL Hct 38.5 (37.0-46.0) % Plt Count 231 (150-420) K/mm3 [facility] 04/16/25 08:42 Sodium 137 Potassium 4.2 Chloride 106 Carbon Dioxide 26 BUN 12 Creatinine 1.02 Glucose 131 H Calcium 8.6 Cardiac Enzymes 04/16/25 Range/Units 08:44 Troponin I < 0.012 (0.000-0.034) ng/mL Liver Function 04/16/25 Range/Units 08:42 Total Bilirubin 0.8 (0.2-1.3) mg/dL AST 26 (17-59) U/L ALT 23 (6-50) U/L Alkaline Phosphatase 124 (38-126) U/L Albumin 3.9 (3.5-5.1) g/dL Assessment and Plan Assessment and plan (1) Sepsis due to pneumonia: Code(s): J18.9 - Pneumonia, unspecified organism; A41.9 - Sepsis, unspecified organism Status: Acute Assessment and Plan: patient presented with worsening shortness of breath upon evaluation he had tachypnea leukocytosis of 22 and CXR showing bilateral pneumonia meeting for sepsis criteria. Patient afebrile and normal lactic vital stable * duo nebs q.6 * incentive spirometry while awake. * influenza/COVID/RSV * azithromycin and ceftriaxone * supplemental oxygen therapy to maintain oxygen 92% * mucolytic * MRSA pending * CMP/CBC daily (2) Pneumonia: Code(s): J18.9 - Pneumonia, unspecified organism Status: Acute Assessment and Plan: SEE ABOVE (3) COPD (chronic obstructive pulmonary disease): Qualifiers: COPD type: unspecified COPD Qualified Code(s): J44.9 - Chronic obstructive pulmonary disease, unspecified Code(s): J44.9 - Chronic obstructive pulmonary disease, unspecified Status: Acute Assessment and Plan: Patient is a current everyday smoker with history of COPD requiring oxygen at this time * oxygen p.r.n. maintain 92% * duo nebulizers q.6 * mucolytics * incentive spirometer * off on prednisone at this time (4) Hypertension: Code(s): I10 - Essential (primary) hypertension Status: Acute Assessment and Plan: * continue atenolol and amlodipine * monitor BP per unit protocol (5) PAF (paroxysmal atrial fibrillation): Code(s): I48.0 - Paroxysmal atrial fibrillation Status: Acute Assessment and Plan: * continue Eliquis and atenolol (6) Dyslipidemia: Code(s): E78.5 - Hyperlipidemia, unspecified Status: Acute Assessment and Plan: * continue atorvastatin (7) Tobacco abuse: Code(s): Z72.0 - Tobacco use Status: Acute Assessment and Plan: * nicotine patch daily * remove patch at night * educated and encouraged smoking cessation Plan Code status: Full code per patient DVT prophylaxis: Lovenox Stress ulcer prophylaxis: Protonix 40 daily PT/OT notes: ambulatory Disposition: patient admitted to the medical unit for further evaluation and treatment of bilateral pneumonia patient ambulatory on own plan to discharge back to assisted facility at time of discharge Quality VTE Prophylaxis VTE prophylaxis: pharmacologic ordered -Patient's previous records reviewed on admission -ER notes reviewed in detail on admission -discussed all findings and current treatment plan with patient/Family/POA -Consultations reviewed for recommendations -Patient's disposition for safe discharge discussed with watch caser Dictation performed by [employer] direct speech recognition software, therefore patrol commander variants and typographical errors may occur. Hospitalist [facility] Advance Care Plan I have confirmed that the patient's Advanced Care Plan is present, code status is documented, or surrogate decision maker is listed in patient medical record.: Yes Medication Reconciliation I have utilized all available resources to obtain, update and review the patients current medications (includes all prescriptions, OTC, herbals, cannabis, and nutritional supplements).: Yes The patient is not eligible for med reconciliation; the patient is in a emergent medical situation where delaying treatment would jeopardize the patients health.: No
[2025-04-16] MEDS: AZITHROMYCIN 250 MG TABLET 500 MG PO (11:10)
[2025-04-16] MEDS: ACETAMINOPHEN 325 MG TABLET 650 MG PO (11:11)
[2025-04-16] MEDS: NICOTINE (*PBKC) 21 MG PATCH 1 PATCH TRANSDERM (11:11)
[2025-04-16] MEDS: guaiFENesin 12 HR 600 MG TABCR 1200 MG PO ×2 (11:11→20:28)
[2025-04-16] MEDS: PANTOPRAZOLE 40 MG TABLET PO (11:28)
[2025-04-16] MEDS: QUEtiapine FUMARATE 100 MG TABLET PO (11:28)
[2025-04-16] MEDS: IPRATROPIUM 0.5 MG/ALBUTEROL SULFATE 2.5 MG AMPUL.NEB 3 ML INHALATION ×2 (11:29→18:15)
[2025-04-16 12:08] LABS: Influenza A QL RT-PCR Negative (Negative); Influenza B QL RT-PCR Negative (Negative); RSV RNA, RT-PCR Negative (Negative); SARS-CoV-2 RNA PCR Negative (Negative)
[2025-04-16 12:33] LABS: MRSA (PCR) NOT DETECTED (NOT DETECTE)
[2025-04-16] MEDS: MONTELUKAST SODIUM 10 MG TABLET PO (18:12)
[2025-04-16] MEDS: APIXABAN 2.5 MG TABLET 5 MG PO (20:28)
[2025-04-16] MEDS: ZOLPIDEM TARTRATE (*CRX) 5 MG TABLET 10 MG PO (20:28)
[2025-04-17] VITALS (14 sets, daily range): BP systolic 82–120; BP diastolic 49–61; PULSE 72–92; RESP 14–24; TEMP 36.2–37.3; O2SAT 91–96
[2025-04-17] MEDS: IPRATROPIUM 0.5 MG/ALBUTEROL SULFATE 2.5 MG AMPUL.NEB 3 ML INHALATION ×3 (00:40→11:43)
[2025-04-17 06:09] LABS: Hematocrit 32.5 % (37.0-46.0); Hemoglobin 10.5 g/dL (12.4-15.3); Mean Corpuscular HGB Conc 32.3 g/dL (32-36); Mean Corpuscular Hemoglobin 28.5 pg (27.0-31.0); Mean Corpuscular Volume 88.1 fL (78.0-102.0); Mean Platelet Volume 10.5 fl (8.7-11.0); Platelet Count Result 200 K/mm3 (150-420); Red Blood Count 3.69 M/mm3 (4.70-6.10); Red Cell Distribution Width 13.2 % (11.6-14.4); White Blood Count 23.6 K/mm3 (4.8-10.8)
[2025-04-17 06:28] LABS: Band Neutrophils Percent 5 % (0-6); Lymphocytes Absolute Manual 2.36 K/mm3 (1.1-4.5); Lymphocytes Percent Manual 10 % (18-44); Monocytes Absolute Manual 0.47 K/mm3 (0.1-0.90); Monocytes Percent Manual 2 % (3-9); Neutrophils Absolute Manual 20.76 K/mm3 (1.3-6.7); Neutrophils Percent Manual 83 % (46-73); Platelet Estimate Adequate (Adequate); Total Cells Counted 100
[2025-04-17 06:30] LABS: Alanine Aminotransferase 20 U/L (6-50); Albumin Level 3.1 g/dL (3.5-5.1); Alkaline Phosphatase 114 U/L (38-126); Anion Gap 5 mmol/L (4-12); Aspartate Amino Transferase 21 U/L (17-59); Bilirubin,Total 0.6 mg/dL (0.2-1.3); Blood Urea Nitrogen 14 mg/dL (9-20); Calcium 8.2 mg/dL (8.4-10.2); Carbon Dioxide 23 mmol/L (22-30); Chloride 108 mmol/L (98-107); Estimated CRCL calculation 68 ml/min; Estimated Glomerular Filt Rate > 60; Glucose 99 mg/dL (65-110); Osmolality Calculated 282 mOsm/kg (285-295); Potassium 3.9 mmol/L (3.4-5.0); Sodium 136 mmol/L (137-145)
--- OUTSIDE RECORDS SUMMARY | 2025-04-17 08:39 | XMS_ITS | CONTINUITY OF CARE DOCUMENT ---
Author Name jessica, sakinaser Address Unknown Organization [facility] Address [address] [place] [address] Phone [phone] Care Team Providers Care Tailor Apprentice Name Role Phone Prashant De León MD Unavailable JOSE LUIS NUNEZ MD Unavailable [phone] JOSE LUIS NUNEZ MD Unavailable PROBLEMS Condition Status Date Provider Notes Depression active Prashant De León MD Schizophrenia active Prashant De León MD Tobacco abuse active Prashant De León MD Prolonged QT interval active Prashant De León MD ENCOUNTERS Date Type Provider Location Encounter Diag nosis - In-person encounter Office Visit Prashant De León MD [place] [facility] DepressionSchizophreniaTobacco abuseProlonged QT interval VITAL SIGNS [...] Mass Index (Ratio) 25.11 kg/m2 Ladonna De Lóen MD weight E&M 175 [lb_av] Prashant De [...] Payer name Policy type / Coverage type [facility] AND [facility] Medicaid 1 [id number] TREATMENT PLAN Date Name Performer Cardiology Prashant [...] Name Provider Procedure Notes S tatus SNOMED-CT: 653335180 [id number] Current Medications Documented Prashant De León MD completed SNOMED-CT: 282952347 Smoking Cessation Counseling Prashant De León MD completed SNOMED-CT: 29218634 Physical Exam, Performed: Pulse Exam of Foot Prashant De León MD completed
[2025-04-17] MEDS: guaiFENesin 12 HR 600 MG TABCR 1200 MG PO ×2 (09:23→20:32)
[2025-04-17] MEDS: NICOTINE (*PBKC) 21 MG PATCH 1 PATCH TRANSDERM (09:23)
[2025-04-17] MEDS: amLODIPine BESYLATE 5 MG TABLET PO (09:24)
[2025-04-17] MEDS: ACETAMINOPHEN 325 MG TABLET 650 MG PO (09:24)
[2025-04-17] MEDS: QUEtiapine FUMARATE 100 MG TABLET PO (09:24)
[2025-04-17] MEDS: AZITHROMYCIN 250 MG TABLET 500 MG PO (09:24)
[2025-04-17] MEDS: atenoloL 25 MG TABLET PO (09:24)
[2025-04-17] MEDS: ATORVASTATIN 10 MG TABLET PO (09:24)
[2025-04-17] MEDS: APIXABAN 2.5 MG TABLET 5 MG PO ×2 (09:24→20:32)
[2025-04-17] MEDS: PANTOPRAZOLE 40 MG TABLET PO (09:24)
--- NOTE | 2025-04-17 10:24 | ECG_ITS ---
Test Date: 2025-04-17 10:32:36 Measurements Intervals [place] Rate: 85 P: 0 [place]: 0 QRS: 77 QRSD: 110 T: 70 QT: 410 QTc: 490 Interpretive Statements ATRIAL FIBRILLATION INCOMPLETE RIGHT BUNDLE BRANCH BLOCK BASELINE ARTIFACT- V1-V3 ABNORMAL ECG Compared to ECG 04/16/2025 08:22:03 Sinus rhythm no longer present Electronically Signed On 04-17-2025 12:53:29 CDT by Jamie Jimenes D.O.
[2025-04-17] MEDS: SODIUM CHLORIDE 0.9% IV 1,000 ML 999 ML IV CONT (10:41)
[2025-04-17] MEDS: CEFEPIME 2 GM/NS 50 ML 2 GM/50 ML BAG IVPB ×2 (11:35→19:33)
[2025-04-17] MEDS: SODIUM CHLORIDE 0.9% IV 1,000 ML 150 ML IV CONT ×2 (11:35→17:40)
[2025-04-17 11:57] LABS: Lactic Acid Reflex 1.9 mmol/L (0.4-2.0)
--- NOTE | 2025-04-17 12:11 | P.PNIM_ITS ---
Progress Note: A&P Assessment and Plan (1) Sepsis due to pneumonia: Code(s): J18.9 - Pneumonia, unspecified organism; A41.9 - Sepsis, unspecified organism Status: Acute Assessment and Plan: patient presented with worsening shortness of breath upon evaluation he had tachypnea leukocytosis of 22 and CXR showing bilateral pneumonia meeting for sepsis criteria. Patient afebrile and normal lactic vital stable. on 04/17/2025 patient was flipping in and out of AFib a flutter a HR anywhere from 80s to 140s but not sustained and to have low BP 80's/40's appeared severely dehydrated with increase to leukocytosis. patient was bolused a L of normal saline repeat lactic normal at 1.9 BP and heart rate improved patient did receive his atenolol which he had missed yesterday. I did transition patient's IV antibiotics to cefepime since he is from a [facility] some concern for HAP. influenza/COVID/RSV negative and MRSA negative no indication for vancomycin at this time * duo nebs switched to Levalbuterol due to AFib a flutter * incentive spirometry while awake. * IV fluids * azithromycin and ceftriaxone switched to IV cefepime * supplemental oxygen therapy to maintain oxygen 92% * mucolytic * CMP/CBC daily (2) Pneumonia: Code(s): J18.9 - Pneumonia, unspecified organism Status: Acute Assessment and Plan: SEE ABOVE (3) COPD (chronic obstructive pulmonary disease): Qualifiers: COPD type: unspecified COPD Qualified Code(s): J44.9 - Chronic obstructive pulmonary disease, unspecified Code(s): J44.9 - Chronic obstructive pulmonary disease, unspecified Status: Acute Assessment and Plan: Patient is a current everyday smoker with history of COPD requiring oxygen at this time * oxygen p.r.n. maintain 92% * Levalbuterol Q6 * mucolytics * incentive spirometer * off on prednisone at this time (4) Acute respiratory failure with hypoxia: Code(s): J96.01 - Acute respiratory failure with hypoxia Status: Acute Assessment and Plan: patient's oxygen saturation dropped to 80% during his episodes AFib a flutter was placed on 2 L supplemental oxygen with improvement likely secondary to above ammonia/ COPD/AFib a flutter patient denied any worsening shortness a breath or chest pain. * continue to treat above * will wean oxygen as tolerated to maintain 92% (5) Hypertension: Code(s): I10 - Essential (primary) hypertension Status: Acute Assessment and Plan: * continue atenolol and amlodipine * monitor BP per unit protocol (6) PAF (paroxysmal atrial fibrillation): Code(s): I48.0 - Paroxysmal atrial fibrillation Status: Acute Assessment and Plan: patient is having episodes of living in and out of AFib a flutter with RVR on sustained rates anywhere between 80s to 140 likely secondary to infection and dehydration improved with IV fluids. patient also had missed his dose of atenolol day of admission. EKG reviewed showing atrial fibrillation rated 85 * continue Eliquis and atenolol (7) Dyslipidemia: Code(s): E78.5 - Hyperlipidemia, unspecified Status: Acute Assessment and Plan: * continue atorvastatin (8) Tobacco abuse: Code(s): Z72.0 - Tobacco use Status: Acute Assessment and Plan: * nicotine patch daily * remove patch at night * educated and encouraged smoking cessation Plan Code status: Full code per patient DVT prophylaxis: Lovenox Stress ulcer prophylaxis: Protonix 40 daily PT/OT notes: ambulatory Disposition: patient admitted to the medical unit for further evaluation and treatment of bilateral pneumonia patient ambulatory on own plan to discharge back to assisted facility at time of discharge Time Spent With Patient Time with patient: 25 - 35 minutes Subjective Date/time seen: 04/17/25 12:11 Interval history: Patient is 69-year-old male admitted for bilateral pneumonia with sepsis. 04/17/2025: patient with complaints of generalized weakness and mild shortness of breath otherwise denies any chest pain nausea vomiting just overall isn't feeling well. Patient on the cardiac monitoring was flipping in and out of AFib a flutter rates anywhere from 80-140 but nonsustained with a soft BP and increased leukocytosis however patient on assessment in no acute distress denied any dizziness, visual changes or palpitations. Review of Systems Review of Systems: All systems reviewed & are unremarkable except as noted in HPI and below Exam Narrative: Pleasant gentleman Const: General: comfortable and no acute distress HENMT: Ears: TM's normal bilaterally Face/Nose/Sinus: Normal nares present Mouth: Yes moist mucous membranes Eyes: General: appearance normal, both eyes and all related structures S clera: sclerae normal Pupils: Equal, round and reactive pupils present EOM: EOMs intact bilaterally Neck: Neck: supple and no JVD Resp: Auscultation: diminished lung sounds bilateral (Right>Left) throughout Other: Tachypnea, productive cough Cardio: Rate: regular rate Rhythm: regular rhythm GI: Auscultation: normal bowel sounds Skin: General skin exam: normal color and no rashes or lesions noted Wounds: no wounds Other: warm to touch mild diaphoresis, Temp 100.8 Neuro: General: gait normal Cranial nerves: Yes Equal, round and reactive pupils present Speech: normal speech Motor exam (neuro): 5/5 motor strength present throughout Sensory Exam: normal sensation Extrem: General: normal to inspection Psych: Mental Status: mental status grossly normal Affect: normal affect Objective Data Vital Signs Vital Signs: Vital Signs - 24 hr 04/16/25 16:00 04/16/25 20:00 04/17/25 00:00 Temperature 98.2 F 97.8 F Pulse Rate 84 84 84 Respiratory Rate 20 16 16 Blood Pressure 105/64 109/49 L Pulse Oximetry 94 94 92 Oxygen Delivery Room Air Room Air Room Air Oxygen Flow Rate 04/17/25 05:27 04/17/25 05:38 04/17/25 08:00 Temperature 99.2 F Pulse Rate 84 84 92 Respiratory Rate 16 16 24 H Blood Pressure 120/60 Pulse Oximetry 91 95 92 Oxygen Delivery Room Air Oxygen Flow Rate 04/17/25 09:24 04/17/25 09:24 04/17/25 10:15 Temperature 99.2 F 97.6 F Pulse Rate 82 86 Respiratory Rate 16 Blood Pressure 82/61 L Pulse Oximetry 92 Oxygen Delivery Room Air Oxygen Flow Rate 04/17/25 10:24 04/17/25 11:19 04/17/25 11:30 Temperature 98.7 F Pulse Rate 72 85 Respiratory Rate 16 16 Blood Pressure Pulse Oximetry 92 96 Oxygen Delivery Oxygen Flow Rate 2 Intake/Output Intake/Output: Intake & Output 04/14/25 04/15/25 04/16/25 04/17/25 23:59 23:59 23:59 23:59 Intake Total 1850 350 Output Total 600 300 Balance 1250 50 Meds/Results Medications: Active Medications Generic Name Dose Route Start Last Admin Trade Name Freq PRN Reason Stop Dose Admin Acetaminophen 650 mg 04/16/25 10:34 04/17/25 09:24 Acetaminophen 325 Mg Tablet PO 650 mg Q4H PRN Administration Mild Pain (1-3) or Fever Hydrocodone Bitart/Acetaminophen 1 tab 04/16/25 10:34 Hydrocodone/Acetaminophen (*Crx) 5-325 Mg Tablet PO Q4H PRN Moderate Pain (4-6) Albuterol/Ipratropium 3 ml 04/16/25 12:30 04/17/25 11:43 Ipratropium 0.5 Mg/Albuterol Sulfate 2.5 Mg Ampul.Neb 3 Ml INHALATION 3 ml Q6HRT ISABEL Administration Amlodipine Besylate 5 mg 04/17/25 09:00 04/17/25 09:24 Amlodipine Besylate 5 Mg Tablet PO 5 mg DAILY ISABEL Administration Apixaban 5 mg 04/16/25 21:00 04/17/25 09:24 Apixaban 2.5 Mg Tablet PO 05/16/25 20:59 5 mg Q12HR ISABEL Administration Atenolol 25 mg 04/17/25 09:00 04/17/25 09:24 Atenolol 25 Mg Tablet PO 25 mg DAILY ISABEL Administration Atorvastatin Calcium 10 mg 04/17/25 09:00 04/17/25 09:24 Atorvastatin 10 Mg Tablet PO 10 mg DAILY ISABEL Administration Azithromycin 500 mg 04/16/25 10:40 04/17/25 09:24 Azithromycin 250 Mg Tablet PO 500 mg DAILY ISABEL Administration Fluticasone Propionate 1 spray 04/16/25 10:42 Fluticasone Propionate 0.05% Na Spr 16 Gm Btl (*Bkc) NASAL DAILY PRN nasal congestion Guaifenesin 1,200 mg 04/16/25 10:45 04/17/25 09:23 Guaifenesin 12 Hr 600 Mg Tabcr PO 1,200 mg Q12HR ISABEL Administration Sodium Chloride 1,000 mls @ 150 mls/hr 04/17/25 11:25 04/17/25 11:35 Normal Saline Iv IV CONT 150 mls/hr .Q6H40M ISABEL Administration Cefepime HCl 2 gm in 50 mls @ 100 mls/hr 04/17/25 12:00 04/17/25 11:35 Maxipime 2 Gm/Ns 50 Ml IVPB 100 mls/hr Q8H ISABEL Administration Montelukast Sodium 10 mg 04/16/25 18:00 04/16/25 18:12 Montelukast Sodium 10 Mg Tablet PO 10 mg QPM ISABEL Administration Naloxone HCl 0.1 mg 04/16/25 10:34 Naloxone Hcl 0.4 Mg/Ml Vial IV PUSH Q2M PRN Opiate Reversal Nicotine 1 patch 04/16/25 10:40 04/17/25 09:23 Nicotine (*Pbkc) 21 Mg Patch TRANSDERM 1 patch DAILY ISABEL Administration Ondansetron HCl 4 mg 04/16/25 10:34 Ondansetron Inj 4 Mg/2 Ml Vial IV PUSH Q6H PRN Nausea And Vomiting Pantoprazole Sodium 40 mg 04/16/25 11:05 04/17/25 09:24 Pantoprazole 40 Mg Tablet PO 40 mg QAM ISABEL Administration Quetiapine Fumarate 100 mg 04/16/25 11:05 04/17/25 09:24 Quetiapine Fumarate 100 Mg Tablet PO 100 mg DAILY ISABEL Administration Zolpidem Tartrate 10 mg 04/16/25 21:00 04/16/25 20:28 Zolpidem Tartrate (*Crx) 5 Mg Tablet PO 10 mg HS ISABEL Administration Radiology Results: ITS Impressions Chest X-Ray 04/16/25 08:13 Impression: Bilateral hazy perihilar airspace disease. This suggests central pulmonary edema versus possibly bilateral pneumonia. Correlate clinically. Labs Labs: Laboratory Results - last 24 hr 04/16/25 04/17/25 04/17/25 10:50 05:42 11:37 WBC 23.6 H RBC 3.69 L Hgb 10.5 L Hct 32.5 L MCV 88.1 MCH 28.5 MCHC 32.3 RDW 13.2 Plt Count 200 MPV 10.5 Immature Gran % (Auto) Not Reportable Neut % (Auto) Not Reportable Lymph % (Auto) Not Reportable [place] % (Auto) Not Reportable Eos % (Auto) Not Reportable Baso % (Auto) Not Reportable Lymph # (Auto) Not Reportable [place] # (Auto) Not Reportable Eos # (Auto) Not Reportable Baso # (Auto) Not Reportable Abs Immat Gran (auto) Not Reportable Absolute Neuts (auto) Not Reportable Absolute Nucleated RBC Not Reportable Total Counted 100 Neutrophils % (Manual) 83 H Band Neutrophils % 5 Lymphocytes % (Manual) 10 L Monocytes % (Manual) 2 L Nucleated RBC % Not Reportable Abs Neuts (Manual) 20.76 H Abs Lymphs (Manual) 2.36 Abs Monocytes (Manual) 0.47 Platelet Estimate Adequate Schistocytes Not Reportable Sodium 136 L Potassium 3.9 Chloride 108 H Carbon Dioxide 23 Anion Gap 5 BUN 14 Creatinine 0.92 Estim Creat Clear Calc 68 Estimated GFR > 60 Glucose 99 Calculated Osmolality 282 L Lactic Acid 1.9 Calcium 8.2 L Magnesium 2.0 Total Bilirubin 0.6 AST 21 ALT 20 Alkaline Phosphatase 114 Total Protein 6.0 L Albumin 3.1 L Nasal MRSA (PCR) Not detected Influenza A (RT-PCR) Negative Influenza B (RT-PCR) Negative RSV (RT-PCR) Negative SARS-CoV-2 RNA (RT-PCR) Negative Quality VTE Prophylaxis VTE prophylaxis: pharmacologic ordered -Patient's previous records reviewed on admission -ER notes reviewed in detail on admission -discussed all findings and current treatment plan with patient/Family/POA -Consultations reviewed for recommendations -Patient's disposition for safe discharge discussed with case mgr Dictation performed by [employer] direct speech recognition software, therefore process safety specialist variants and typographical errors may occur. Hospitalist [facility] Advance Care Plan I have confirmed that the patient's Advanced Care Plan is present, code status is documented, or surrogate decision maker is listed in patient medical record.: Yes Medication Reconciliation I have utilized all available resources to obtain, update and review the patients current medications (includes all prescriptions, OTC, herbals, cannabis, and nutritional supplements).: Yes The patient is not eligible for med reconciliation; the patient is in a emergent medical situation where delaying treatment would jeopardize the patients health.: No
--- NOTE | 2025-04-17 13:50 | PCRCNOTE ---
Not given due to Duoneb given previously.
[2025-04-17] MEDS: MONTELUKAST SODIUM 10 MG TABLET PO (17:38)
[2025-04-17] MEDS: ZOLPIDEM TARTRATE (*CRX) 5 MG TABLET 10 MG PO (20:32)
[2025-04-18] VITALS (17 sets, daily range): BP systolic 104–126; BP diastolic 55–74; PULSE 64–135; RESP 14–20; TEMP 36.3–36.7; O2SAT 93–99
[2025-04-18] MEDS: SODIUM CHLORIDE 0.9% IV 1,000 ML 150 ML IV CONT ×3 (00:29→16:00)
[2025-04-18] MEDS: CEFEPIME 2 GM/NS 50 ML 2 GM/50 ML BAG IVPB ×3 (03:08→19:39)
[2025-04-18 05:16] LABS: Basophils Absolute Auto 0.03 K/mm3 (0.00-0.10); Basophils Percent Auto 0.2 % (0.0-1.0); Eosinophils Absolute Auto 0.09 K/mm3 (0.02-0.50); Eosinophils Percent Auto 0.6 % (1.0-6.0); Hematocrit 30.9 % (37.0-46.0); Immature Granulocyte Absolute 0.15 K/mm3 (0.00-0.00); Lymphocytes Absolute Auto 1.34 K/mm3 (1.10-4.50); Lymphocytes Percent Auto 8.6 % (18.0-42.0); Mean Corpuscular HGB Conc 32.4 g/dL (32-36); Mean Corpuscular Hemoglobin 28.9 pg (27.0-31.0); Mean Corpuscular Volume 89.3 fL (78.0-102.0); Monocytes Absolute Auto 0.62 K/mm3 (0.10-0.90); Neutrophils Percent Auto 85.6 % (50.0-70.0); Platelet Count Result 181 K/mm3 (150-420); Red Blood Count 3.46 M/mm3 (4.70-6.10); Red Cell Distribution Width 13.3 % (11.6-14.4); White Blood Count 15.6 K/mm3 (4.8-10.8)
[2025-04-18 05:27] LABS: Alanine Aminotransferase 18 U/L (6-50); Albumin Level 2.7 g/dL (3.5-5.1); Alkaline Phosphatase 102 U/L (38-126); Anion Gap 2 mmol/L (4-12); Aspartate Amino Transferase 18 U/L (17-59); Bilirubin,Total 0.4 mg/dL (0.2-1.3); Blood Urea Nitrogen 11 mg/dL (9-20); Calcium 7.7 mg/dL (8.4-10.2); Carbon Dioxide 22 mmol/L (22-30); Chloride 115 mmol/L (98-107); Estimated CRCL calculation 79 ml/min; Estimated Glomerular Filt Rate > 60; Glucose 97 mg/dL (65-110); Magnesium 1.9 mg/dL (1.6-2.3); Osmolality Calculated 287 mOsm/kg (285-295); Potassium 4.2 mmol/L (3.4-5.0); Sodium 139 mmol/L (137-145); Total Protein 5.6 g/dL (6.3-8.2)
[2025-04-18] MEDS: atenoloL 25 MG TABLET PO (08:54)
[2025-04-18] MEDS: QUEtiapine FUMARATE 100 MG TABLET PO (08:54)
[2025-04-18] MEDS: NICOTINE (*PBKC) 21 MG PATCH 1 PATCH TRANSDERM (08:54)
[2025-04-18] MEDS: PANTOPRAZOLE 40 MG TABLET PO (08:54)
[2025-04-18] MEDS: AZITHROMYCIN 250 MG TABLET 500 MG PO (08:54)
[2025-04-18] MEDS: ATORVASTATIN 10 MG TABLET PO (08:54)
[2025-04-18] MEDS: guaiFENesin 12 HR 600 MG TABCR 1200 MG PO ×2 (08:54→20:32)
[2025-04-18] MEDS: amLODIPine BESYLATE 5 MG TABLET PO (08:54)
[2025-04-18] MEDS: APIXABAN 2.5 MG TABLET 5 MG PO ×2 (08:54→20:32)
--- NOTE | 2025-04-18 09:14 | P.PNIM_ITS ---
Progress Note: A&P Assessment and Plan (1) Sepsis due to pneumonia: Code(s): J18.9 - Pneumonia, unspecified organism; A41.9 - Sepsis, unspecified organism Status: Acute Assessment and Plan: patient presented with worsening shortness of breath upon evaluation he had tachypnea leukocytosis of 22 and CXR showing bilateral pneumonia meeting for sepsis criteria. Patient afebrile and normal lactic vital stable. on 04/17/2025 patient was flipping in and out of AFib a flutter a HR anywhere from 80s to 140s but not sustained and to have low BP 80's/40's appeared severely dehydrated with increase to leukocytosis. patient was given a bolus 1 L of normal saline repeat lactic normal at 1.9 BP and heart rate improved patient did receive his atenolol which he had missed yesterday. I did transition patient's IV antibiotics to cefepime since he is from a skilled nursing some concern for HAP. influenza/COVID/RSV negative and MRSA negative no indication for vancomycin at this time. Leukocytosis trending down today and BP stable. Blood cultures still NGTD * duo nebs switched to Levalbuterol due to AFib a flutter * incentive spirometry while awake. * continue IV fluids 150 x 24 hours if good oral intake will discontinue * azithromycin and ceftriaxone switched to IV cefepime * supplemental oxygen therapy to maintain oxygen 92% was placed on 2L oxygen saturation 88% currently weaned to RA * mucolytic * CMP/CBC daily (2) Pneumonia: Code(s): J18.9 - Pneumonia, unspecified organism Status: Acute Assessment and Plan: SEE ABOVE (3) COPD (chronic obstructive pulmonary disease): Qualifiers: COPD type: unspecified COPD Qualified Code(s): J44.9 - Chronic obstructive pulmonary disease, unspecified Code(s): J44.9 - Chronic obstructive pulmonary disease, unspecified Status: Acute Assessment and Plan: Patient is a current everyday smoker with history of COPD requiring oxygen at this time intially held off on prednisone but patient with Rhonchi and wheezing throughout with dry cough and need for supplemental oxygen so I added 40 prednisone daily * oxygen p.r.n. maintain 92% * Levalbuterol Q6 * mucolytics * incentive spirometer * added Prednisone 40 mg daily (4) Acute respiratory failure with hypoxia: Code(s): J96.01 - Acute respiratory failure with hypoxia Status: Acute Assessment and Plan: patient's oxygen saturation dropped to 80% during his episodes AFib a flutter was placed on 2 L supplemental oxygen with improvement likely secondary to above ammonia/ COPD/AFib a flutter patient denied any worsening shortness a breath or chest pain. * continue to treat above * will wean oxygen as tolerated to maintain 92% (5) Hypertension: Code(s): I10 - Essential (primary) hypertension Status: Acute Assessment and Plan: * continue atenolol and amlodipine * monitor BP per unit protocol (6) PAF (paroxysmal atrial fibrillation): Code(s): I48.0 - Paroxysmal atrial fibrillation Status: Acute Assessment and Plan: patient is having episodes of living in and out of AFib a flutter with RVR on sustained rates anywhere between 80s to 140 likely secondary to infection and dehydration improved with IV fluids. patient also had missed his dose of atenolol day of admission. EKG reviewed showing atrial fibrillation rated 85 HR improved with medication and IV fluids. Echo reviewed 01/2025 LVEF 60-65% * continue Eliquis and atenolol * Continuous cardiac monitoring (7) Dyslipidemia: Code(s): E78.5 - Hyperlipidemia, unspecified Status: Acute Assessment and Plan: * continue atorvastatin (8) Tobacco abuse: Code(s): Z72.0 - Tobacco use Status: Acute Assessment and Plan: * nicotine patch daily * remove patch at night * educated and encouraged smoking cessation Plan Code status: Full code per patient DVT prophylaxis: Eliquis Stress ulcer prophylaxis: Protonix 40 daily PT/OT notes: ambulatory Disposition: patient admitted to the medical unit for further evaluation and treatment of bilateral pneumonia patient ambulatory on own plan to discharge back to assisted at time of discharge, declined PT/OT Time Spent With Patient Time with patient: 15 - 25 minutes Subjective Date/time seen: 04/18/25 09:14 Interval history: Patient is 69-year-old male admitted for bilateral pneumonia with sepsis. 04/18/2025: Patient reports improvement to his breathing still with dry cough and mild SOB but feels he is taking deeper breaths and pain with inspiration improving. Review of Systems Review of Systems: All systems reviewed & are unremarkable except as noted in HPI and below Exam Narrative: Pleasant gentleman Const: General: comfortable and no acute distress HENMT: Ears: TM's normal bilaterally Face/Nose/Sinus: Normal nares present Mouth: Yes moist mucous membranes Eyes: General: appearance normal, both eyes and all related structures Sclera: sclerae normal Pupils: Equal, round and reactive pupils present EOM: EOMs intact bilaterally Neck: Neck: supple and no JVD Resp: Auscultation: rhonchi throughout Other: Dry cough Cardio: Rate: regular rate Rhythm: regular rhythm GI: Auscultation: normal bowel sounds Skin: General skin exam: normal color and no rashes or lesions noted Wounds: no wounds Other: warm to touch mild diaphoresis, Temp 100.8 Neuro: General: gait normal Cranial nerves: Yes Equal, round and reactive pupils present Speech: normal speech Motor exam (neuro): 5/5 motor strength present throughout Sensory Exam: normal sensation Extrem: General: normal to inspection Psych: Mental Status: mental status grossly normal Affect: normal affect Objective Data Vital Signs Vital Signs: Vital Signs - 24 hr 04/17/25 09:24 04/17/25 09:24 04/17/25 10:15 Temperature 99.2 F 97.6 F Pulse Rate 82 86 Respiratory Rate 16 Blood Pressure 82/61 L Pulse Oximetry 92 Oxygen Delivery Room Air Oxygen Flow Rate 04/17/25 10:24 04/17/25 11:19 04/17/25 11:30 Temperature 98.7 F Pulse Rate 72 85 Respiratory Rate 16 16 Blood Pressure Pulse Oximetry 92 96 Oxygen Delivery Oxygen Flow Rate 2 04/17/25 16:00 04/17/25 16:59 04/17/25 17:03 Temperature 97.2 F L Pulse Rate 73 72 74 Respiratory Rate 18 16 14 Blood Pressure 113/60 Pulse Oximetry 95 92 96 Oxygen Delivery Nasal Cannula Oxygen Flow Rate 2 2 2 04/17/25 20:00 04/17/25 20:00 04/18/25 00:00 Temperature Pulse Rate 74 91 76 Respiratory Rate 14 Blood Pressure Pulse Oximetry 96 Oxygen Delivery Nasal Cannula Oxygen Flow Rate 2 04/18/25 00:00 04/18/25 00:30 04/18/25 00:45 Temperature 98.1 F Pulse Rate 64 64 64 Respiratory Rate 18 18 16 Blood Pressure 104/55 L Pulse Oximetry 94 94 96 Oxygen Delivery Nasal Cannula Oxygen Flow Rate 2 2 2 04/18/25 04:00 04/18/25 05:37 04/18/25 05:49 Temperature Pulse Rate 76 86 76 Respiratory Rate 20 18 Blood Pressure Pulse Oximetry 94 99 Oxygen Delivery Oxygen Flow Rate 04/18/25 07:55 04/18/25 07:55 04/18/25 07:59 Temperature 97.9 F Pulse Rate 135 H 130 H 83 Respiratory Rate 17 Blood Pressure 123/69 Pulse Oximetry 93 Oxygen Delivery Room Air Oxygen Flow Rate 04/18/25 08:54 Temperature Pulse Rate 84 Respiratory Rate Blood Pressure Pulse Oximetry Oxygen Delivery Oxygen Flow Rate Intake/Output Intake/Output: Intake & Output 04/15/25 04/16/25 04/17/25 04/18/25 23:59 23:59 23:59 23:59 Intake Total 1850 3150 2290 Output Total 600 1300 400 Balance 1250 1850 1890 Meds/Results Medications: Active Medications Generic Name Dose Route Start Last Admin Trade Name Freq PRN Reason Stop Dose Admin Acetaminophen 650 mg 04/16/25 10:34 04/17/25 09:24 Acetaminophen 325 Mg Tablet PO 650 mg Q4H PRN Administration Mild Pain (1-3) or Fever Hydrocodone Bitart/Acetaminophen 1 tab 04/16/25 10:34 Hydrocodone/Acetaminophen (*Crx) 5-325 Mg Tablet PO Q4H PRN Moderate Pain (4-6) Amlodipine Besylate 5 mg 04/17/25 09:00 04/18/25 08:54 Amlodipine Besylate 5 Mg Tablet PO 5 mg DAILY ISABEL Administration Apixaban 5 mg 04/16/25 21:00 04/18/25 08:54 Apixaban 2.5 Mg Tablet PO 05/16/25 20:59 5 mg Q12HR ISABEL Administration Atenolol 25 mg 04/17/25 09:00 04/18/25 08:54 Atenolol 25 Mg Tablet PO 25 mg DAILY ISABEL Administration Atorvastatin Calcium 10 mg 04/17/25 09:00 04/18/25 08:54 Atorvastatin 10 Mg Tablet PO 10 mg DAILY ISABEL Administration Azithromycin 500 mg 04/16/25 10:40 04/18/25 08:54 Azithromycin 250 Mg Tablet PO 500 mg DAILY ISABEL Administration Fluticasone Propionate 1 spray 04/16/25 10:42 Fluticasone Propionate 0.05% Na Spr 16 Gm Btl (*Bkc) NASAL DAILY PRN nasal congestion Guaifenesin 1,200 mg 04/16/25 10:45 04/18/25 08:54 Guaifenesin 12 Hr 600 Mg Tabcr PO 1,200 mg Q12HR ISABEL Administration Sodium Chloride 1,000 mls @ 150 mls/hr 04/17/25 11:25 04/18/25 08:55 Normal Saline Iv IV CONT 150 mls/hr .Q6H40M ISABEL Administration Cefepime HCl 2 gm in 50 mls @ 100 mls/hr 04/17/25 12:00 04/18/25 03:38 Maxipime 2 Gm/Ns 50 Ml IVPB Infused Q8H ISABEL Infusion Levalbuterol HCl 0.63 mg 04/17/25 12:30 04/18/25 05:37 Levalbuterol Neb 0.63 Mg/3 Ml INHALATION 0.63 mg Q6HRT ISABEL Administration Montelukast Sodium 10 mg 04/16/25 18:00 04/17/25 17:38 Montelukast Sodium 10 Mg Tablet PO 10 mg QPM ISABEL Administration Naloxone HCl 0.1 mg 04/16/25 10:34 Naloxone Hcl 0.4 Mg/Ml Vial IV PUSH Q2M PRN Opiate Reversal Nicotine 1 patch 04/16/25 10:40 04/18/25 08:54 Nicotine (*Pbkc) 21 Mg Patch TRANSDERM 1 patch DAILY ISABEL Administration Ondansetron HCl 4 mg 04/16/25 10:34 Ondansetron Inj 4 Mg/2 Ml Vial IV PUSH Q6H PRN Nausea And Vomiting Pantoprazole Sodium 40 mg 04/16/25 11:05 04/18/25 08:54 Pantoprazole 40 Mg Tablet PO 40 mg QAM ISABEL Administration Prednisone 40 mg 04/18/25 09:15 Prednisone 20 Mg Tablet PO DAILY@0800 ISABEL Quetiapine Fumarate 100 mg 04/16/25 11:05 04/18/25 08:54 Quetiapine Fumarate 100 Mg Tablet PO 100 mg DAILY ISABEL Administration Zolpidem Tartrate 10 mg 04/16/25 21:00 04/17/25 20:32 Zolpidem Tartrate (*Crx) 5 Mg Tablet PO 10 mg HS ISABEL Administration Radiology Results: ITS Impressions Chest X-Ray 04/16/25 08:13 Impression: Bilateral hazy perihilar airspace disease. This suggests central pulmonary edema versus possibly bilateral pneumonia. Correlate clinically. Labs Labs: Laboratory Results - last 24 hr 04/17/25 04/18/25 11:37 05:10 WBC 15.6 H RBC 3.46 L Hgb 10.0 L Hct 30.9 L MCV 89.3 MCH 28.9 MCHC 32.4 RDW 13.3 Plt Count 181 MPV 10.0 Immature Gran % (Auto) 1.0 H Neut % (Auto) 85.6 H Lymph % (Auto) 8.6 L [place] % (Auto) 4.0 Eos % (Auto) 0.6 L Baso % (Auto) 0.2 Lymph # (Auto) 1.34 [place] # (Auto) 0.62 Eos # (Auto) 0.09 Baso # (Auto) 0.03 Abs Immat Gran (auto) 0.15 H Absolute Neuts (auto) 13.40 H Absolute Nucleated RBC 0.00 Nucleated RBC % 0.0 Sodium 139 Potassium 4.2 Chloride 115 H Carbon Dioxide 22 Anion Gap 2 L BUN 11 Creatinine 0.78 Estim Creat Clear Calc 79 Estimated GFR > 60 Glucose 97 Calculated Osmolality 287 Lactic Acid 1.9 Calcium 7.7 L Magnesium 1.9 Total Bilirubin 0.4 AST 18 ALT 18 Alkaline Phosphatase 102 Total Protein 5.6 L Albumin 2.7 L Quality VTE Prophylaxis VTE prophylaxis: pharmacologic ordered -Patient's previous records reviewed on admission -ER notes reviewed in detail on admission -discussed all findings and current treatment plan with patient/Family/POA -Consultations reviewed for recommendations -Patient's disposition for safe discharge discussed with supervisor case loading Dictation performed by [employer] direct speech recognition software, therefore general science teacher variants and typographical errors may occur. Hospitalist [facility] [place] Advance Care Plan I have confirmed that the patient's Advanced Care Plan is present, code status is documented, or surrogate decision maker is listed in patient medical record.: Yes Medication Reconciliation I have utilized all available resources to obtain, update and review the patients current medications (includes all prescriptions, OTC, herbals, cannabis, and nutritional supplements).: Yes The patient is not eligible for med reconciliation; the patient is in a emergent medical situation where delaying treatment would jeopardize the patients health.: No
[2025-04-18] MEDS: predniSONE 20 MG TABLET 40 MG PO (11:52)
[2025-04-18] MEDS: MONTELUKAST SODIUM 10 MG TABLET PO (17:41)
[2025-04-18] MEDS: ZOLPIDEM TARTRATE (*CRX) 5 MG TABLET 10 MG PO (20:32)
[2025-04-19] VITALS (11 sets, daily range): BP systolic 143–163; BP diastolic 74–81; PULSE 69–84; RESP 14–17; TEMP 36.3–36.5; O2SAT 93–100
[2025-04-19] MEDS: SODIUM CHLORIDE 0.9% IV 1,000 ML 150 ML IV CONT (00:09)
[2025-04-19] MEDS: CEFEPIME 2 GM/NS 50 ML 2 GM/50 ML BAG IVPB ×2 (04:10→12:01)
[2025-04-19 05:22] LABS: Basophils Absolute Auto 0.01 K/mm3 (0.00-0.10); Basophils Percent Auto 0.1 % (0.0-1.0); Hematocrit 31.5 % (37.0-46.0); Hemoglobin 10.2 g/dL (12.4-15.3); Immature Granulocyte Absolute 0.11 K/mm3 (0.00-0.00); Immature Granulocyte Percent A 1.2 % (0.0-0.0); Lymphocytes Absolute Auto 0.93 K/mm3 (1.10-4.50); Lymphocytes Percent Auto 10.3 % (18.0-42.0); Mean Corpuscular HGB Conc 32.4 g/dL (32-36); Mean Corpuscular Hemoglobin 28.6 pg (27.0-31.0); Mean Corpuscular Volume 88.2 fL (78.0-102.0); Mean Platelet Volume 10.3 fl (8.7-11.0); Monocytes Percent Auto 4.4 % (2.0-11.0); Neutrophils Absolute Auto 7.62 K/mm3 (1.70-7.20); Platelet Count Result 204 K/mm3 (150-420); Red Blood Count 3.57 M/mm3 (4.70-6.10); Red Cell Distribution Width 13.1 % (11.6-14.4); White Blood Count 9.1 K/mm3 (4.8-10.8)
[2025-04-19 05:36] LABS: Alanine Aminotransferase 29 U/L (6-50); Albumin Level 3.2 g/dL (3.5-5.1); Alkaline Phosphatase 101 U/L (38-126); Anion Gap 3 mmol/L (4-12); Aspartate Amino Transferase 28 U/L (17-59); Bilirubin,Total 0.5 mg/dL (0.2-1.3); Blood Urea Nitrogen 7 mg/dL (9-20); Calcium 8.2 mg/dL (8.4-10.2); Carbon Dioxide 23 mmol/L (22-30); Chloride 114 mmol/L (98-107); Estimated CRCL calculation 89 ml/min; Estimated Glomerular Filt Rate > 60; Glucose 102 mg/dL (65-110); Osmolality Calculated 288 mOsm/kg (285-295); Potassium 4.1 mmol/L (3.4-5.0); Sodium 140 mmol/L (137-145); Total Protein 5.8 g/dL (6.3-8.2)
[2025-04-19] MEDS: PANTOPRAZOLE 40 MG TABLET PO (09:19)
[2025-04-19] MEDS: NICOTINE (*PBKC) 21 MG PATCH 1 PATCH TRANSDERM (09:19)
[2025-04-19] MEDS: QUEtiapine FUMARATE 100 MG TABLET PO (09:19)
[2025-04-19] MEDS: AZITHROMYCIN 250 MG TABLET 500 MG PO (09:19)
[2025-04-19] MEDS: guaiFENesin 12 HR 600 MG TABCR 1200 MG PO (09:20)
[2025-04-19] MEDS: APIXABAN 2.5 MG TABLET 5 MG PO (09:20)
[2025-04-19] MEDS: atenoloL 25 MG TABLET PO (09:20)
[2025-04-19] MEDS: ATORVASTATIN 10 MG TABLET PO (09:20)
[2025-04-19] MEDS: amLODIPine BESYLATE 5 MG TABLET PO (09:20)
[2025-04-19] MEDS: predniSONE 20 MG TABLET 40 MG PO (09:20)
--- NOTE | 2025-04-19 10:10 | PM.DS ---
DS: Admitting Diagnosis Discharge Date 04/19/2025 Admitting Diagnosis sepsis due to pneumonia, pneumonia, COPD, HTN, PAF, Dyslipidemia, Tobacco abuse DS: Discharge Diagnosis Discharge Diagnosis (1) Sepsis due to pneumonia: Code(s): J18.9 - Pneumonia, unspecified organism; A41.9 - Sepsis, unspecified organism Status: Acute (2) Pneumonia: Code(s): J18.9 - Pneumonia, unspecified organism Status: Acute (3) COPD (chronic obstructive pulmonary disease): Qualifiers: COPD type: unspecified COPD Qualified Code(s): J44.9 - Chronic obstructive pulmonary disease, unspecified Code(s): J44.9 - Chronic obstructive pulmonary disease, unspecified Status: Acute (4) Acute respiratory failure with hypoxia: Code(s): J96.01 - Acute respiratory failure with hypoxia Status: Acute (5) Hypertension: Code(s): I10 - Essential (primary) hypertension Status: Acute (6) PAF (paroxysmal atrial fibrillation): Code(s): I48.0 - Paroxysmal atrial fibrillation Status: Acute (7) Dyslipidemia: Code(s): E78.5 - Hyperlipidemia, unspecified Status: Acute (8) Tobacco abuse: Code(s): Z72.0 - Tobacco use Status: Acute Plan -Receive noon dose of cefepime prior to discharge -Back on room air -HR normal, remains in afib, continue apixaban and atenolol -No fever -Patient requesting discharge -Start Levaquin tomorrow for 4 more days of treatment -Prednisone 4 more days of treatment starting tomorrow -Levalbuterol inhaler prescribed -Nicotine patches prescribed per patient request DS: Summary Hospital Course Reason for hospitalization: Pneumonia with hypoxia and need for supplemental oxygen Hospital Course: This is a 69 year old male patient admitted to the hospital with hypoxia and pneumonia diagnosis with findings meeting sepsis criteria. Patient initially started on Rocephin and azithromycin but Rocephin changed to cefepime since patient resides in [facility] setting. He received steroids, antibiotics and breathing treatments with improvement in work of breathing and was able to titrate off oxygen. Patient has history of atrial fibrillation and was in RVR initially. Breathing treatments changed to levalbuterol and atenolol was able to be restarted once BP improved. He was on IV fluids until the morning of discharge and overall two liters fluid positive during this stay. Patient does not appear to have fluid overload, is breathing easily on room air with much improved lung sounds. WBC count downtrended daily, back to normal on day of discharge. Antibiotic selection changed to Levaquin for 4 more days, normal renal function so 750 mg daily for 4 days. Status at Discharge Cognitive/behavioral status at discharge: Awake, alert, oriented, pleasant Functional status at discharge: independent ambulation Overall status at discharge: patient is progressing back to baseline Time Spent with Patient Time attestation: Total time spent providing and/or coordinating discharge services: 45 minutes Exam Narrative: Pleasant gentleman Const: General: comfortable and no acute distress HENMT: Ears: TM's normal bilaterally Face/Nose/Sinus: Normal nares present Mouth: Yes moist mucous membranes Eyes: General: appearance normal, both eyes and all related structures Sclera: sclerae normal Pupils: Equal, round and reactive pupils present EOM: EOMs intact bilaterally Neck: Neck: supple and no JVD Resp: Auscultation: clear to auscultation bilaterally, no rhonchi and no wheezes Other: Dry cough Cardio: Rate: regular rate Rhythm: abnormal rhythm irregularly irregular Other: atrial fibrillation with controlled ventricular rate on telemetry per my independent interpretation GI: Auscultation: normal bowel sounds Skin: General skin exam: normal color and no rashes or lesions noted Wounds: no wounds Neuro: General: gait normal Cranial nerves: Yes Equal, round and reactive pupils present Speech: normal speech Motor exam (neuro): 5/5 motor strength present throughout Sensory Exam: normal sensation Extrem: General: normal to inspection Psych: Mental Status: mental status grossly normal Affect: normal affect DS: Data Data Completed and Pending Labs on day of discharge: Labs from last 24 hours 04/19/25 05:08 WBC 9.1 RBC 3.57 L Hgb 10.2 L Hct 31.5 L MCV 88.2 MCH 28.6 MCHC 32.4 RDW 13.1 Plt Count 204 MPV 10.3 Immature Gran % (Auto) 1.2 H Neut % (Auto) 84.0 H Lymph % (Auto) 10.3 L [place] % (Auto) 4.4 Eos % (Auto) 0.0 L Baso % (Auto) 0.1 Lymph # (Auto) 0.93 L [place] # (Auto) 0.40 Eos # (Auto) 0.00 L Baso # (Auto) 0.01 Abs Immat Gran (auto) 0.11 H Absolute Neuts (auto) 7.62 H Absolute Nucleated RBC 0.00 Nucleated RBC % 0.0 Sodium 140 Potassium 4.1 Chloride 114 H Carbon Dioxide 23 Anion Gap 3 L BUN 7 L Creatinine 0.69 L Estim Creat Clear Calc 89 Estimated GFR > 60 Glucose 102 Calculated Osmolality 288 Calcium 8.2 L Magnesium 2.0 Total Bilirubin 0.5 AST 28 ALT 29 Alkaline Phosphatase 101 Total Protein 5.8 L Albumin 3.2 L Preliminary micro results at discharge 04/16/25 08:44 Blood Culture - Preliminary Blood 04/16/25 08:44 Blood Culture - Preliminary Blood Discharge Plan Discharge Consulting providers: Lanette Robertson Discharging Clinician: Ayush Jordan Anticipated Discharge Date/Time: 04/19/25 09:57 Patient Disposition: Home Activity: as tolerated Diet: heart healthy Discharge Instructions: Take antibiotic and steroid starting tomorrow for 4 more days. Inhaler prescription sent to pharmacy for use as needed for wheezing or shortness of breath. Nicotine patch prescription with 2 refills sent to pharmacy. Resume/continue all previous home medications. Patient Instructions: Antibiotic Form, Levofloxacin (By mouth), Fall Prevention for Older Adults (DC), Community Acquired Pneumonia (DC) Patient Language: Montenegrin Stand Alone Forms: General Discharge Information Follow-up/Referrals: Barry Reilly MD [Primary Care Provider] - Follow Up with Primary Dr Discharge Medications: New acetaminophen 325 mg Tablet 650 mg PO Q4H PRN (Reason: Mild Pain (1-3) Or Fever) Qty: 0 0RF prednisone 20 mg Tablet 40 mg PO DAILY@0800 Qty: 8 0RF pantoprazole 40 mg Tablet,Delayed Release (Dr/Ec) 40 mg PO QAM Qty: 30 0RF nicotine [Nicoderm CQ] 21 mg/24 hr Patch 24 Hour 1 patch transdermal DAILY Qty: 30 2RF levofloxacin 750 mg tablet 750 mg PO DAILY 4 Days Qty: 4 0RF levalbuterol tartrate 45 mcg/actuation HFA aerosol inhaler 2 inh inhalation Q4H PRN (Reason: shortness of breath or wheezing) Qty: 15 0RF Continued amlodipine 5 mg tablet 5 mg PO DAILY quetiapine 100 mg tablet 100 mg PO DAILY zolpidem 10 mg tablet 10 mg PO DAILY atorvastatin 10 mg tablet 10 mg PO DAILY fluticasone propionate 50 mcg/actuation spray,suspension 1 spray INTRANASAL DAILY PRN (Reason: nasal congestion) montelukast 10 mg tablet 10 mg PO QPM atenolol 25 mg tablet 25 mg PO DAILY Eliquis 5 mg tablet 5 mg PO BID Date of admission: 04/17/25 09:29 Primary Care Provider: Barry Reilly Admitting Provider: Vlad Rebollar Attending physician on admission: Vlad Rebollar Condition: Improved Quality VTE Prophylaxis VTE prophylaxis: pharmacologic ordered Hospitalist MIPS Heart Failure (Exclusion) Patient has history of Heart Transplant or Left Ventricular Assistive Device?: No IF YES, STOP HERE Heart Failure (Qualifier) Patient has current or prior documentation of LVEF less than or equal to 40%, or mod/servere depressed LVSF?: No IF NO, STOP HERE
--- NOTE | 2025-04-19 13:30 | PC.NURSE ---
Discharge packet explained to transporter from [facility]. Instructions given for Karin to call with any questions regarding medications or follow up. Pt transported via wheelchair and assisted into private vehicle.
--- NOTE | 2025-04-20 09:45 | PC.NURSE ---
Called [facility] for discharge call back. Was informed he is doing much better today.
== END 2025-04-19 13:30 | disposition home or self-care (01) | DRG 871 ==
LOC: CHSED 09:51 → CHS2ND 10:06
PROVIDERS: Nurse Practitioner Family; Admitting Provider Internal Medicine; Emergency Provider Emergency Medicine; PCP Internal Medicine; Visit Provider Internal Medicine
DX: A41.9 Sepsis, unspecified organism (principal); J18.9 Pneumonia, unspecified organism; J96.01 Acute respiratory failure with hypoxia; J44.0 Chronic obstructive pulmonary disease with (acute) lower respiratory infection; E86.0 Dehydration; I10 Essential (primary) hypertension; I48.0 Paroxysmal atrial fibrillation; E78.5 Hyperlipidemia, unspecified; F32.A Depression, unspecified; Z79.01 Long term (current) use of anticoagulants; Z72.0 Tobacco use
CPT/HCPCS: 36415; 71045; 80053; 83605; 83735; 83880; 84484; 85025; 87040; 87637; 87641; 93005; 94640; 96361; 96365; 96367; 96372; 96375; 99285; A9270; G0378; J0692; J0696; J2543; J7030; J7512